=== PATIENT | female | born 1930 | race Caucasian/White ===

== ENCOUNTER → 2017-10-30 | Outpatient (CLI) | payer MEDICARE ==
[~2017-10-30] MED LIST: ACE3 PO; ALE70 PO; ASPI-1441 PO; ASPI-1471 PO; ATE50 PO; ATOR40TA24 PO; BACDS PO; CALC600T72 PO; CEP250 PO; CEPH-13 PO; CEPH500T7 PO; CHOL100059 PO; CIP500 PO; CIPR-344 PO; CITA-139 PO; CYCL10TA29 PO; FAMO10TA89 PO; HYDR-2966 PO; HYDR-3250 PO; KET10 PO; LIDO700A19 TP; LISI-362 PO; LISI20TA29 PO; LOR5/325 PO; LOV20 PO; MEC125 PO; MELO-205 PO; METO25TA23 PO; MIRT-22 PO; NIT4 SL; ONDA4TAB PO; OXYB5TAB86 PO; PAR20 PO; POTA10CA40 PO; PREVPACPT PO; SPIR25TA76 PO; SPIR25TA78 PO; TAMS0.4C25 PO; TOLT2CAP; TRAZ-156 PO; TRAZ-163 PO; TRIA5T TOP; vitamin D IM
[2017-10-30 15:07] LABS: PLATELET COUNT, AUTOMATED 349 K/uL (150-450)
== END ==
LOC: LAB 14:35
PROVIDERS: ATTEND Nurse Practitioner Family
DX: D50.9 Iron deficiency anemia, unspecified (principal); D50.8 Other iron deficiency anemias; M62.81 Muscle weakness (generalized); D51.0 Vitamin B12 deficiency anemia due to intrinsic factor deficiency; R27.8 Other lack of coordination; R29.6 Repeated falls; I69.128 Other speech and language deficits following nontraumatic intracerebral hemorrhage; E55.9 Vitamin D deficiency, unspecified
CPT/HCPCS: 36415; 82040; 82247; 82310; 82374; 82435; 82565; 82607; 82728; 82947; 84075; 84132; 84155; 84295; 84443; 84450; 84460; 84520; 85025

== ENCOUNTER 2017-12-02 10:32 | Outpatient (RCR) | payer MEDICARE ==
[~2017-12-02 10:32] MED LIST changes: +ALTEPLASE RECOMB 2 MG VIAL IVP PRN; +DEXTROSE 5%(*) 100 ML BAG 100 ML IVPB PRN; +HEPARIN FLSH (PORT) 500 UN/5ML IVP PRN; +LIDOCAINE/SOD BICARB 8.4% SYR ID PRN; +NS(*) 0.9% 100 ML BAG 100 ML IVPB PRN; +NS(*) 0.9% 500 ML BAG 500 ML IV PRN; +WATER STERILE 10 ML VIAL IVP PRN
[2017-12-02 11:02] VITALS: BP 161/87
[2017-12-02 11:05] VITALS: BP 161/87
[2017-12-02 11:20] VITALS: BP 148/79
[2017-12-02 13:26] VITALS: BP 149/74
[2017-12-09] MEDS ORDERED: OXYC-865 PO (12:00)
[2017-12-11] MEDS ORDERED: ACET-1966 PO (14:43)
[2017-12-11] MEDS ORDERED: SPIR25TA78 PO (14:43)
[2017-12-30] MEDS ORDERED: MOM PO (12:54)
[2017-12-30] MEDS ORDERED: ASPI-764 PO (12:54)
[2017-12-30] MEDS ORDERED: POLY17PO21 PO (12:54)
[2017-12-30] MEDS ORDERED: DOCU-202 PO (12:54)
== END 2018-01-22 14:53 | disposition home or self-care (01) ==
LOC: SPU 10:32
PROVIDERS: ATTEND Nurse Practitioner Family
DX: R09.02 Hypoxemia (principal); D50.9 Iron deficiency anemia, unspecified; R42 Dizziness and giddiness
CPT/HCPCS: 36415; 36430; 86850; 86900; 86901; 86920; J7040; P9016

== ENCOUNTER 2017-12-08 18:08 | Inpatient (IN) | payer MEDICARE ==
[~2017-12-08] VITALS: Ht 152.4 cm; Wt 42.9 kg
[~2017-12-08 18:08] MED LIST changes: -ACET-1966 PO; -OXYC-865 PO
[2017-12-08] MEDS ORDERED: NS(*) 0.9% 1000 ML BAG 1,000 ML IV ONE (18:13)
--- NOTE | 2017-12-08 18:13 | ER Report ---
History and Physical Time Seen By MD: 18:08 HPI/ROS CHIEF COMPLAINT: Fall, left hip pain, skin tear left elbow HISTORY OF PRESENT ILLNESS: 87-year-old female brought in by EMS from home. She fell off her porch, landing on her left hip and left elbow. She's complaining of severe left hip pain 9 out of 10. Her leg is internally rotated and shortened. EMS administered fentanyl 50 g prior to arrival. She feels much better. She was placed in a pelvic binder by EMS. Patient is a large avulsion skin tear over her left elbow. She thinks her last tetanus shot was within 10 years. She denies head impact, neck pain, chest pain, shortness of breath. REVIEW OF SYSTEMS: Respiratory: No cough, no dyspnea. Cardiovascular: No chest pain, no palpitations. Gastrointestinal: No vomiting, no abdominal pain. Musculoskeletal: As above Allergies: Coded Allergies: zolpidem (Verified Allergy, Unknown, 12/08/17) Home Meds Active Scripts Lisinopril (LISINOPRIL) 20 Mg Tablet, 20 MG PO QDAY, #30 TAB Prov:TONY BHANDARI DO 09/08/17 Oxybutynin Chloride (OXYBUTYNIN CHLORIDE) 5 Mg Tablet, 1 TAB PO QHS, #90 TAB 3 Refills Prov:AL PAYAN APRN-C 06/27/15 Citalopram Hydrobromide (CITALOPRAM HBR) 20 Mg Tablet, 1 TAB PO QDAY, #90 TAB 3 Refills Prov:AL PAYAN APRN-C 06/27/15 Reported Medications Oxycodone Hcl/Acetaminophen (PERCOCET 5-325 MG TABLET) 1 Each Tablet, 1-2 EACH PO Q4-6H Y for PAIN, TAB 12/09/17 Potassium Chloride (POTASSIUM CHLORIDE) 10 Meq Capsule.er, 10 MEQ PO 09/08/17 Atorvastatin Calcium (LIPITOR) 40 Mg Tablet, 1 TAB PO QDAY, TAB 09/08/17 Metoprolol Succinate (METOPROLOL SUCCINATE) 25 Mg Tab.er.24h, 1 TAB PO QDAY, TAB 09/08/17 Aspirin (ASPIR 81) 81 Mg Tablet.dr, 81 MG PO QDAY, TAB 09/08/17 Discontinued Scripts Lidocaine (Lidocaine) 5 % Adh..patch, 1 EACH TP QDAY, #30 PATCH Prov:TONY BHANDARI DO 09/08/17 Past Medical/Surgical History Past medical history: Hyperlipidemia, depression, overactive bladder, hypertension, CVA, , residual left upper extremity weakness Past surgical history appendectomy, partial colectomy, hysterectomy, Reviewed Nurses Notes: Yes Old Medical Records Reviewed: Yes Hx Smoking: No Smoking Status: Never Smoker Exposure to Second Hand Smoke?: No Hx Substance Use Disorder: No Hx Alcohol Use: No Constitutional Vital Sign - Last 24 Hours 12/08/17 12/08/17 12/08/17 12/08/17 18:08 18:23 18:31 18:32 Temp 98.7 Pulse ? 79 Resp 18 B/P (MAP) 121/91 185/97 (126) Pulse Ox 98 O2 Delivery Nasal Cannula 12/08/17 12/08/17 12/08/17 12/08/17 18:38 18:53 19:06 19:08 Pulse 73 87 88 B/P (MAP) 181/140 (154) Pulse Ox 98 95 98 12/08/17 12/08/17 12/08/17 19:23 19:30 19:38 Pulse 88 ??? B/P (MAP) 187/84 (118) Pulse Ox 98 Physical Exam General Appearance: The patient is alert, has no immediate need for airway protection and no current signs of toxicity. Vital signs stable, afebrile, pulse ox normal Eyes: Pupils equal and round no injection. Respiratory: Chest is non tender, lungs are clear to auscultation. Cardiac: regular rate and rhythm Gastrointestinal: Abdomen is soft and non tender, no masses, bowel sounds normal. Musculoskeletal: Neck: Neck is supple and non tender. Extremities have full range of motion and are non tender. There is tenderness over the left hip area, left lower externally is neurovascularly intact Skin: No rashes or lesions. DIFFERENTIAL DIAGNOSIS: After history and physical exam differential diagnosis was considered for fall in the elderly including but not limited to intracranial injury, long bone and pelvic bone fracture, spinal injury, and intrathoracic injury. Medical Decision Making Data Points Result Diagram: 12/09/17 1040 12/08/17 1902 Laboratory Hematology Test 12/08/17 19:02 Red Blood Count 4.10 M/uL (4.17-5.56) Mean Corpuscular Volume 87.3 fL (80.0-96.0) Mean Corpuscular Hemoglobin 29.3 pg (26.0-33.0) Mean Corpuscular Hemoglobin Concent 33.5 g/dL (32.0-36.0) Red Cell Distribution Width 13.6 % (11.5-14.5) Mean Platelet Volume 7.5 fL (7.2-11.1) Neutrophils (%) (Auto) 73.7 % (39.4-72.5) Lymphocytes (%) (Auto) 16.8 % (17.6-49.6) Monocytes (%) (Auto) 7.5 % (4.1-12.4) Eosinophils (%) (Auto) 1.3 % (0.4-6.7) Basophils (%) (Auto) 0.7 % (0.3-1.4) Nucleated RBC Relative Count (auto) 0.0 /100WBC Neutrophils # (Auto) 7.3 K/uL (2.0-7.4) Lymphocytes # (Auto) 1.7 K/uL (1.3-3.6) Monocytes # (Auto) 0.7 K/uL (0.3-1.0) Eosinophils # (Auto) 0.1 K/uL (0.0-0.5) Basophils # (Auto) 0.1 K/uL (0.0-0.1) Nucleated RBC Absolute Count (auto) 0.00 K/uL Prothrombin Time 14.0 seconds (12.0-14.4) Prothromb Time International Ratio 1.07 Activated Partial Thromboplast Time 25 seconds (23-35) Sodium Level 136 mmol/L (137-145) Potassium Level 3.9 mmol/L (3.5-5.0) Chloride Level 103 mmol/L (98-107) Carbon Dioxide Level 23 mmol/L (22-31) Blood Urea Nitrogen 19 mg/dl (7-18) Creatinine 0.70 mg/dl (0.52-1.04) Glomerular Filtration Rate Calc > 60.0 Random Glucose 102 mg/dl (75-110) Calcium Level 9.1 mg/dl (8.4-10.2) Total Bilirubin 0.3 mg/dl (0.2-1.3) Aspartate Amino Transf (AST/SGOT) 26 U/L (0-35) Alanine Aminotransferase (ALT/SGPT) 36 U/L (0-56) Alkaline Phosphatase 87 U/L (0-126) Troponin I < 0.012 ng/ml Total Protein 5.8 gm/dl (6.3-8.2) Albumin 3.1 g/dl (3.5-5.0) Chemistry Test 12/08/17 19:02 White Blood Count 9.9 k/uL (4.5-11.0) Red Blood Count 4.10 M/uL (4.17-5.56) Mean Corpuscular Volume 87.3 fL (80.0-96.0) Mean Corpuscular Hemoglobin 29.3 pg (26.0-33.0) Mean Corpuscular Hemoglobin Concent 33.5 g/dL (32.0-36.0) Red Cell Distribution Width 13.6 % (11.5-14.5) Platelet Count 281 K/uL (150-450) Mean Platelet Volume 7.5 fL (7.2-11.1) Neutrophils (%) (Auto) 73.7 % (39.4-72.5) Lymphocytes (%) (Auto) 16.8 % (17.6-49.6) Monocytes (%) (Auto) 7.5 % (4.1-12.4) Eosinophils (%) (Auto) 1.3 % (0.4-6.7) Basophils (%) (Auto) 0.7 % (0.3-1.4) Nucleated RBC Relative Count (auto) 0.0 /100WBC Neutrophils # (Auto) 7.3 K/uL (2.0-7.4) Lymphocytes # (Auto) 1.7 K/uL (1.3-3.6) Monocytes # (Auto) 0.7 K/uL (0.3-1.0) Eosinophils # (Auto) 0.1 K/uL (0.0-0.5) Basophils # (Auto) 0.1 K/uL (0.0-0.1) Nucleated RBC Absolute Count (auto) 0.00 K/uL Prothrombin Time 14.0 seconds (12.0-14.4) Prothromb Time International Ratio 1.07 Activated Partial Thromboplast Time 25 seconds (23-35) Glomerular Filtration Rate Calc > 60.0 Calcium Level 9.1 mg/dl (8.4-10.2) Total Bilirubin 0.3 mg/dl (0.2-1.3) Aspartate Amino Transf (AST/SGOT) 26 U/L (0-35) Alanine Aminotransferase (ALT/SGPT) 36 U/L (0-56) Alkaline Phosphatase 87 U/L (0-126) Troponin I < 0.012 ng/ml Total Protein 5.8 gm/dl (6.3-8.2) Albumin 3.1 g/dl (3.5-5.0) Coagulation Test 12/08/17 19:02 Prothrombin Time 14.0 seconds Prothromb Time International Ratio 1.07 Activated Partial Thromboplast Time 25 seconds EKG/Imaging EKG Interpretation 12 lead EK Rhythm: normal sinus rhythm with sinus arrhythmia, rate 63 bpm [place]: normal QRS: normal ST segments: normal, comparison to previous EKG 09/07/17. There is normalization of the T waves in the V leads., There is significant increase in voltage QRS, suspicious for LVH. Imaging X-ray: Single view portable chest x-ray was obtained. I viewed the images myself on the PACS system. My interpretation of the images is: No infiltrate, no effusion, normal mediastinum. The radiologist interpretation had no clinically significant variation from this interpretation. X-ray: Left hip 3 views was obtained. I viewed the images myself on the PACS system. My interpretation of the images is: There is a fracture of the left hip. There appears to be a surgical neck fracture as well as an intertrochanteric fracture. There appears to be a fragment. The radiologist interpretation had no clinically significant variation from this interpretation. Results: CT scan of the left hip was obtained. The results of the study are Examination: HIP LEFT W/O CONTRAST Comparison: Radiographs same day. History: Left hip fracture. Procedure: Multiplanar noncontrast CT left hip. One of the following dose optimization techniques was utilized in the performance of this exam: Automated exposure control; adjustment of the mA and/ or kV according to the patient's size; or use of an iterative reconstruction technique. Specific details can be referenced in the facility's radiology CT exam operational policy. Findings: Evaluation of the solid and viscus parenchymal organs and vascular structures is limited without the benefit of IV contrast. Left femur mildly comminuted, impacted, and angulated intertrochanteric/ subtrochanteric fracture. Both the greater trochanter and lesser trochanter are mildly fragmented. The femoral neck and femoral head are intact and left hip alignment is maintained. Mild soft tissue swelling surrounding the fracture but no definite evidence of hematoma. The visualized portions of the pelvis are intact. Visualized left sacroiliac joint and pubic symphysis alignment is within normal limits. Acetabular morphology is within normal limits with minimal left hip joint space loss. Sigmoidectomy. Minimal stool in the visualized colon. Questionable mild small bowel wall thickening and mesenteric edema in the visualized left lower abdomen and pelvis. The iliac and femoral atherosclerosis. IMPRESSION: 1. Left femur intertrochanteric/subtrochanteric comminuted and impacted fracture. 2. Questionable small bowel edema in the visualized left lower abdomen and pelvis. Correlation with any evidence of an enteritis is recommended. 3. Atherosclerosis. 4. Sigmoidectomy. The study was read by the radiologist. I viewed the images myself on the PACS system. ED Course/Re-evaluation Clinical Indication for ER IV: Hydration, IV Access ED Course Patient was admitted to an examination room. H&P was done. The differential diagnoses was considered. On clinical examination, patient appears to have a left hip fracture from her mechanism and her pain. Diagnostic x-rays are ordered. Patient's medicated for pain. Patient had diagnostic studies completed for preop. Case was discussed with Dr. Garcia and Dr. Malcolm Ya hospitalist to admit to the medical management. 12/08/2017 7:02:13 pm case was discussed with Dr. Garcia orthopedist on-call, who accept the patient for admission. Patient will go to the medical service and she has advanced age and numerous medical problems. 12/08/2017 7:26:26 pm returned call. After evaluating the films. He would like a CT scan of the left hip to be performed. Decision to Disposition Date: Dec 08, 2017 Decision to Disposition Time: 18:58 Depart Departure Latest Vital Signs Vital Signs Date Time Temp Pulse Resp B/P (MAP) Pulse Ox O2 Delivery O2 Flow Rate FiO2 12/08/17 19:38 ??? 12/08/17 19:30 187/84 (118) 12/08/17 19:23 98 12/08/17 18:31 98.7 18 Nasal Cannula Impression: Primary Impression: Fall in elderly patient Additional Impressions: Closed left hip fracture Skin tear of left elbow without complication History of hypertension History of CVA (cerebrovascular accident) Condition: Improved Disposition: Admitted from ER Referrals: CORTNEY VAZQUEZ (PCP) Problem Qualifiers Additional Impressions: Closed left hip fracture Encounter type: initial encounter Qualified Codes: S72.002A - Fracture of unspecified part of neck of left femur, initial encounter for closed fracture Skin tear of left elbow without complication Encounter type: initial encounter Qualified Codes: S51.012A - Laceration without foreign body of left elbow, initial encounter YSABEL FRANCIS DO Dec 08, 2017 18:13
[2017-12-08] MEDS ORDERED: ONDANSETRON 4 MG/2 ML VIAL IVP ONE (18:15)
[2017-12-08] MEDS ORDERED: fentaNYL CITR 100 MCG/2 ML AMP IVP ONE ×2 (18:20→19:30)
--- NOTE | 2017-12-08 18:22 | EKG ---
FACILITY: [facility] PATIENT NAME: KESHAV ALFONSO : [id number] MR: [id number] V: [id number] EXAM DATE: ORDERING PHYSICIAN: YSABEL FRANCIS TECHNOLOGIST: CHERYLE Schultz Reason : FALL Blood Pressure : / mmHG Vent. Rate : 063 BPM Atrial Rate : 063 BPM P-R Int : 164 ms QRS Dur : 072 ms QT Int : 410 ms P-R-T Axes : 061 020 042 degrees QTc Int : 419 ms Normal sinus rhythm with sinus arrhythmia Moderate voltage criteria for LVH, may be normal variant No ST-T abnormalities When compared with ECG of 07-SEP-2017 11:42, Vent. rate has decreased BY 49 BPM T wave inversion no longer evident in Anterior leads Confirmed by NELSON PRETTY ([id number]) on 12/08/2017 8:00:43 PM Referred By: TITO Confirmed By:NELSON PRETTY
[2017-12-08 19:11] LABS: PLATELET COUNT, AUTOMATED 281 K/uL (150-450)
--- NOTE | 2017-12-08 19:37 | RADIOLOGY IMAGING REPORT ---
FACILITY: [facility] - [place] PATIENT NAME: Sayra Hayward : 1930 MR: [id number] V: [id number] EXAM DATE: ORDERING PHYSICIAN: YSABEL FRANCIS TECHNOLOGIST: Location: [facility] - [place] Patient: Sayra Hayward : 1930 Visit/Account:[id number] Date of Sevice: 12/08/2017 Chest single view: HISTORY: Fall, left hip pain. COMPARISON: 09/07/2017 FINDINGS: Portable chest 1850 hours: Heart size is upper limits of normal. There is no infiltrate or pleural effusion. No pneumothorax. Pulmonary vasculature is normal. Atherosclerotic changes are prese nt in the aorta. Large hiatal hernia is noted. IMPRESSION: No evidence of acute cardiopulmonary abnormality. Report Dictated By: Deedee Brennan MD at 12/08/2017 7:31 PM Report E-Signed By: Deedee Brennan MD at 12/08/2017 7:33 PM WSN:[id number]
[2017-12-08 19:38] LABS: INR 1.07
--- NOTE | 2017-12-08 19:55 | RADIOLOGY IMAGING REPORT ---
[place] [facility] [place] Sayra Hayward : 1930 MR: [id number] V: [id number] EXAM DATE: ORDERING PHYSICIAN: YSABEL FRANCIS TECHNOLOGIST: Location: [facility] - [place] Patient: Sayra Hayward : 1930 Visit/Account:[id number] Date of Sevice: 12/08/2017 HIP LEFT HISTORY: Fall, left hip pain ADDITIONAL HISTORY: None. COMPARISON: None. FINDINGS: AP view the pelvis and coned-down AP and crosstable lateral views of the left hip were obtained. Ther e is a fracture through the proximal femur which appears to extend from the proximal femur below the lesser trochanter cranially and laterally possibly to the base of the femoral neck. From the images p rovided, it is difficult to determine the exact trajectory is a fracture. If indicated, CT could BE c onsidered. There is slight varus angulation at the fracture. Hip joint spaces are well-maintained. Right hip is unremarkable. Pelvic ring is intact. Symphysis and SI joints are within normal limits. IMPRESSION: Proximal femur fracture which may extend cranially to involve the base of the femoral neck. If there is need for further evaluation of the fracture, cross-sectional imaging may be considered. Report Dictated By: Deedee Brennan MD at 12/08/2017 7:33 PM Report E-Signed By: Deedee Brennan MD at 12/08/2017 7:51 PM WSN:[id number]
--- NOTE | 2017-12-08 20:27 | RADIOLOGY IMAGING REPORT ---
FACILITY: [facility] PATIENT NAME: Sayra Hayward : 1930 MR: [id number] V: [id number] EXAM DATE: ORDERING PHYSICIAN: YSABEL FRANCIS TECHNOLOGIST: Location: [facility] - [place] Patient: Sayra Hayward : 1930 Visit/Account:[id number] Date of Sevice: 12/08/2017 Examination: HIP LEFT W/O CONTRAST Comparison: Radiographs same day. History: Left hip fracture. Procedure: Multiplanar noncontrast CT left hip. One of the following dose optimization techniques was utilized in the performance of this exam: Autom ated exposure control; adjustment of the mA and/or kV according to the patient's size; or use of an i terative reconstruction technique. Specific details can be referenced in the facility's radiology C T exam operational policy. Findings: Evaluation of the solid and viscus parenchymal organs and vascular structures is limited wi thout the benefit of IV contrast. Left femur mildly comminuted, impacted, and angulated intertrochanteric/subtrochanteric fracture. Bot h the greater trochanter and lesser trochanter are mildly fragmented. The femoral neck and femoral he ad are intact and left hip alignment is maintained. Mild soft tissue swelling surrounding the fracture but no definite evidence of hematoma. The visualized portions of the pelvis are intact. Visualized left sacroiliac joint and pubic symphysi s alignment is within normal limits. Acetabular morphology is within normal limits with minimal left hip joint space loss. Sigmoidectomy. Minimal stool in the visualized colon. Questionable mild small bowel wall thickening a nd mesenteric edema in the visualized left lower abdomen and pelvis. The iliac and femoral atheroscle rosis. IMPRESSION: 1. Left femur intertrochanteric/subtrochanteric comminuted and impacted fracture. 2. Questionable small bowel edema in the visualized left lower abdomen and pelvis. Correlation with a ny evidence of an enteritis is recommended. 3. Atherosclerosis. 4. Sigmoidectomy. Results were discussed with YSABEL FRANCIS at 12/08/2017 8:20 PM. Report Dictated By: Sundar Ocampo MD at 12/08/2017 8:12 PM Report E-Signed By: Sundar Ocampo MD at 12/08/2017 8:22 PM WSN:[id number]
[2017-12-08] MEDS ORDERED: fentaNYL CITR 100 MCG/2 ML AMP IVP PRN ×2 (20:55→23:10)
[2017-12-08 21:18] VITALS: BP 190/113
[2017-12-08 21:22] VITALS: BP 168/105
[2017-12-08] MEDS ORDERED: NS(*) 0.9% 1000 ML BAG 1,000 ML IV PRN (23:09)
[2017-12-08] MEDS ORDERED: PROMETHAZINE 25 MG/ML 1 ML AMP IVP PRN (23:10)
[2017-12-08] MEDS ORDERED: INFLUENZA VIRUS VAC 0.5 ML SYR IM ONLY ONE (23:10)
[2017-12-08] MEDS ORDERED: LABETALOL HCL 20 MG/4 ML SYR IVP PRN (23:10)
--- NOTE | 2017-12-08 23:33 | History & Physical ---
History of Present Illness History of Present Illness 87yo female with h/o CVA who came to the ER after a fall. She was in her normal state of health this evening. She was climbing stairs to go to a democrat and stepped wrong. She fell on her left side. She denies any cp/sob/vertigo/ palpitations/LOC before the fall. She had a stroke about a year ago and has some residual left UE and LE weakness. She denies CAD/COPD/asthma/CHF/DVT/PE. She has never had problems with anesthesia. She is able to climb a flight of stairs without stopping and exercises multiple times a week. She denies LE edema, orthopnea, cp with activity, or sob. History Problems: (1) History of CVA (cerebrovascular accident) Status: Chronic (2) History of hypertension Status: Chronic (3) OAB (overactive bladder) Status: Chronic (4) Hypertension Status: Chronic (5) Depression Status: Chronic (6) History of hysterectomy Status: Chronic (7) History of partial colectomy Status: Chronic (8) History of appendectomy Status: Chronic Home Meds Active Scripts Lisinopril (LISINOPRIL) 20 Mg Tablet, 20 MG PO QDAY, #30 TAB Prov:TONY BHANDARI DO 09/08/17 Lidocaine (Lidocaine) 5 % Adh..patch, 1 EACH TP QDAY, #30 PATCH Prov:TONY BHANDARI DO 09/08/17 Oxybutynin Chloride (OXYBUTYNIN CHLORIDE) 5 Mg Tablet, 1 TAB PO QHS, #90 TAB 3 Refills Prov:AL PAYAN APRN-C 06/27/15 Citalopram Hydrobromide (CITALOPRAM HBR) 20 Mg Tablet, 1 TAB PO QDAY, #90 TAB 3 Refills Prov:AL PAYAN APRNP-C 06/27/15 Reported Medications Potassium Chloride (POTASSIUM CHLORIDE) 10 Meq Capsule.er, 10 MEQ PO 09/08/17 Atorvastatin Calcium (LIPITOR) 40 Mg Tablet, 1 TAB PO QDAY, TAB 09/08/17 Metoprolol Succinate (METOPROLOL SUCCINATE) 25 Mg Tab.er.24h, 1 TAB PO QDAY, TAB 09/08/17 Aspirin (ASPIR 81) 81 Mg Tablet.dr, 81 MG PO QDAY, TAB 09/08/17 Allergies: Coded Allergies: zolpidem (Verified Allergy, Unknown, 12/08/17) Patient History: Diabetes mellitus (DM) FH: breast cancer CHILD (Breast Cancer) CHILD (Breast Cancer) FHx: heart disease FHx: hypertension Hx Smoking: No Smoking Status: Never Smoker Exposure to Second Hand Smoke?: No Caffeine Intake: Tea Hx Alcohol Use: No Hx Substance Use Disorder: No Review of Systems All Systems Reviewed/Normal: Yes, Except as Noted Exam Vital Signs Vital Signs Date Time Temp Pulse Resp B/P (MAP) Pulse Ox O2 Delivery O2 Flow Rate FiO2 12/08/17 20:21 2.0 12/08/17 19:53 89 97 12/08/17 19:30 187/84 (118) 12/08/17 18:31 98.7 18 Nasal Cannula General Appearance: Alert, Awake, No Acute Distress Neuro: No Gross deficits Eyes: PERRLA ENT: Moist Mucous Membranes Cardiovascular: Regular Rate and Rhythm, No JVD Respiratory: Clear to Auscultation GI: Abd Soft and Non-Tender Extremities: No Edema Integumentary: No Jaundice, No Cyanosis Medical Decision Making Data Points Result Diagram: 12/08/17190112/08/171901 EKG / Imaging EKG Interpretation Vent. Rate : 063 BPM Atrial Rate : 063 BPM P-R Int : 164 ms QRS Dur : 072 ms QT Int : 410 ms P-R-T Axes : 061 020 042 degrees QTc Int : 419 ms Normal sinus rhythm with sinus arrhythmia Moderate voltage criteria for LVH, may be normal variant No ST-T abnormalities When compared with ECG of 07-SEP-2017 11:42, Vent. rate has decreased BY 49 BPM T wave inversion no longer evident in Anterior leads Confirmed by NELSON PRETTY ([id number]) on 12/08/2017 8:00:[address] - 1. Left femur intertrochanteric/subtrochanteric comminuted and impacted fracture. 2. Questionable small bowel edema in the visualized left lower abdomen and pelvis. Correlation with any evidence of an enteritis is recommended. 3. Atherosclerosis. 4. Sigmoidectomy. CXR - No evidence of acute cardiopulmonary abnormality. Hip Xray - Proximal femur fracture which may extend cranially to involve the base of the femoral neck. If there is need for further evaluation of the fracture, cross-sectional imaging may be considered. Assessment and Plan Problems: (1) Pre-op evaluation Status: Acute Assessment & Plan: The patient has a low to moderate risk for cardiac complications related to surgery because of age, HTN, and a CVA 12 months ago. However, she has no worrisome symptoms and had a normal myocardial perfusion scan 1.5 months ago. There is no further testing to be done. She has a low risk for pulmonary complications. She had a moderate to high risk for delirium after surgery because of her age and previous CVA. She has a low to moderate risk for bleeding secondary to ASA use. (2) Closed left hip fracture Status: Acute Assessment & Plan: It was secondary to a fall without any worrisome symptoms causing the event. Dr. Curry is following. (3) Anemia Status: Chronic Assessment & Plan: She has had a normocytic anemia for a couple of years. She was transfused 1 unit of PRBC on 12/02 for what appears to be a Hgb of 9.8. Hgb is 12 today. She is chronically on ASA, but no reported symptoms concerning for occult bleeding. Will follow. (4) Skin tear of left elbow without complication Status: Acute Assessment & Plan: Left elbow has a significant hematoma and is wrapped. Apparently, she has a skin tear under the dressing. Will follow. (5) History of CVA (cerebrovascular accident) Status: Chronic Assessment & Plan: Chronically on ASA, and Lipitor, which will be held before surgery. (6) Hypertension Status: Chronic Assessment & Plan: She is chronically on Toprol. She reports SBP in the 150- 180 at home. Will give labetalol prn before surgery. (7) Depression Status: Chronic Assessment & Plan: Chronically on citalopram which will be held for now. (8) OAB (overactive bladder) Status: Chronic Assessment & Plan: She is chronically on oxybutynin, which will be held for now. Copies to: KARENA CURRY MD; CORTNEY VAZQUEZ Venous Thromboembolism Antithrombotics Is Pt On Any Antithrombotics?: No Exam Sepsis Risk: No Definite Risk Problem Qualifiers (1) Closed left hip fracture: Encounter type: initial encounter Qualified Codes: S72.002A - Fracture of unspecified part of neck of left femur, initial encounter for closed fracture (2) Skin tear of left elbow without complication: Encounter type: initial encounter Qualified Codes: S51.012A - Laceration without foreign body of left elbow, initial encounter NELSON PRETTY MD Dec 08, 2017 23:33
[2017-12-08 23:41] VITALS: BP 176/109
[2017-12-09] VITALS (19 sets, daily range): BP systolic 101–147; BP diastolic 61–101; Ht 152.4 cm; Wt 42.9 kg
[2017-12-09] MEDS ORDERED: NORMOSOL R SOLN(*) 1000 ML BAG 1,000 ML IV ONE (07:46)
[2017-12-09] MEDS ORDERED: FAMOTIDINE(*) 20MG/50ML PREMIX 50 ML IVPB ONE (07:55)
[2017-12-09] MEDS ORDERED: LABETALOL HCL 100 MG/20ML VIAL IVP PRN (08:00)
[2017-12-09] MEDS ORDERED: ceFAZolin(*) 1 GM VIAL 1 GM in NS(*) 0.9% 100 ML ADDVANT BAG 100 ML IV ONE ×2 (08:10→08:20)
[2017-12-09] MEDS ORDERED: LIDOCAINE MPF 1% 5 ML VIAL ONE (08:13)
[2017-12-09] MEDS ORDERED: ONDANSETRON 4 MG/2 ML VIAL ONE (08:13)
[2017-12-09] MEDS ORDERED: PROPOFOL EMUL(*) 10MG/ML 20 ML 20 ML ONE (08:13)
[2017-12-09] MEDS ORDERED: fentaNYL CITR 100 MCG/2 ML AMP ONE (08:13)
[2017-12-09] MEDS ORDERED: DEXAMETHASONE SOD 4 MG/ML VIAL ONE (08:13)
[2017-12-09] MEDS ORDERED: ROCURONIUM BROM 10 MG/ML 10 ML ONE (08:15)
[2017-12-09] MEDS ORDERED: KETAMINE HCL 200 MG/20 ML MDV ONE (08:19)
[2017-12-09] MEDS ORDERED: ROPIVACAINE 0.2% 20 ML VIAL ONE (08:30)
[2017-12-09] MEDS ORDERED: PHENYLEPHRINE/NS/PF 0.4MG/10ML ONE (09:41)
[2017-12-09] MEDS ORDERED: DESFLURANE 240 ML BTL INH ONE (09:41)
[2017-12-09] MEDS ORDERED: SUGAMMADEX SOD 200 MG/2 ML SDV ONE (09:42)
[2017-12-09] MEDS ORDERED: NS 0.9% IRRIGATION 1000ML PLCT IR ONE (09:57)
[2017-12-09] MEDS ORDERED: ONDANSETRON 4 MG/2 ML VIAL IVP PRN (10:25)
[2017-12-09] MEDS ORDERED: NALOXONE HCL 0.4 MG/ML VIAL IVP PRN (10:25)
[2017-12-09] MEDS ORDERED: PROMETHAZINE 25 MG/ML 1 ML AMP IVP PRN (10:25)
[2017-12-09] MEDS ORDERED: KCL/D5LR 20 MEQ/1000 ML PREMIX 1,000 ML IV PRN (10:25)
[2017-12-09] MEDS ORDERED: FLUSH 10 ML SYR IVP PRN (10:25)
[2017-12-09] MEDS ORDERED: diphenhydrAMINE 25 MG CAP PO PRN (10:25)
[2017-12-09] MEDS ORDERED: ACETAMINOPHEN 500 MG TAB PO PRN (10:25)
[2017-12-09] MEDS ORDERED: MAGNESIUM CITRATE 300 ML BTL PO PRN (10:25)
[2017-12-09] MEDS ORDERED: HYDROmorphone PCA 6 MG/30 ML IV PRN (10:25)
--- NOTE | 2017-12-09 10:49 | RADIOLOGY IMAGING REPORT ---
FACILITY: [facility] - [place] PATIENT NAME: Sayra Hayward : 1930 MR: [id number] V: [id number] EXAM DATE: ORDERING PHYSICIAN: KARENA CURRY TECHNOLOGIST: Location: [facility] - [place] Patient: Sayra Hayward : 1930 Visit/Account:[id number] Date of Sevice: 12/09/2017 C-ARM FLUORO 1 HR Provided history: FX HIP L Additional pertinent history: none COMPARISON STUDIES: 12/08/17 FINDINGS: Fluoroscopic views of the left hip demonstrate open reduction and internal fixation of a left hip I T fracture with a short IM fransico and compression screw. Alignment is very close to anatomic with minim al lateral displacement of the distal component.. IMPRESSION: Fluoroscopy and spot views during left hip surgical reduction. 65 seconds of fluoroscopic time was used for the procedure. 8 images were obtained. Report Dictated By: Fidel Martin MD at 12/09/2017 10:43 AM Report E-Signed By: Fidel Martin MD at 12/09/2017 10:45 AM WSN:[id number]
[2017-12-09] MEDS ORDERED: OXYC-865 PO (12:00)
--- NOTE | 2017-12-09 13:25 | Hospitalist Progress Note ---
Subjective Progress Notes Subjective Patient seen post-op. She reports "I'm doing fine". She denies any SOB/CP/N/V. Physical Exam Vital Signs Date Time Temp Pulse Resp B/P (MAP) Pulse Ox O2 Delivery O2 Flow Rate FiO2 12/09/17 12:30 96 115/71 (86) 96 Nasal Cannula 2.0 12/09/17 11:18 97.6 12 Intake and Output 12/10/17 07:00 Intake Total 1750 ml Output Total 525 ml Balance 1225 ml Intake Oral 50 ml IV Total 1700 ml Output Urine Total 175 ml Estimated Blood Loss 350 ml General Appearance: Alert, Awake Cardiovascular: Regular Rate and Rhythm Respiratory: Clear to Auscultation Extremities: Warm, Perfused Result Diagram: 12/09/17 1040 12/08/17 1902 Assessment and Plan Problems: (1) Closed left hip fracture Status: Acute Assessment & Plan: Secondary to a fall without any worrisome symptoms causing the event. Dr. Garcia has performed ORIF. She will be working with PT/OT. She will resume her aspirin therapy. (2) Anemia Status: Chronic Assessment & Plan: She has had a normocytic anemia for a couple of years. She was transfused 1 unit of PRBC on 12/02/2017 for what appears to be a Hgb of 9.8. Hgb was 12.0 pre-op. She is chronically on ASA, but no reported symptoms concerning for occult bleeding. Will follow. (3) Skin tear of left elbow without complication Status: Acute Assessment & Plan: Left elbow has a significant hematoma and is wrapped. She has a skin tear under the dressing as well. Will follow. (4) History of CVA (cerebrovascular accident) Status: Chronic Assessment & Plan: Chronically on ASA, and Lipitor, which will be resumed. (5) Hypertension Status: Chronic Assessment & Plan: She is chronically on Toprol. (6) Depression Status: Chronic Assessment & Plan: Chronically on citalopram which will be restarted. (7) OAB (overactive bladder) Status: Chronic Assessment & Plan: She is chronically on oxybutynin, which will be held while Dumont cath in place. Exam Sepsis Risk: No Definite Risk Problem Qualifiers (1) Closed left hip fracture: Encounter type: initial encounter Qualified Codes: S72.002A - Fracture of unspecified part of neck of left femur, initial encounter for closed fracture (2) Skin tear of left elbow without complication: Encounter type: initial encounter Qualified Codes: S51.012A - Laceration without foreign body of left elbow, initial encounter DELLA PETTY MD Dec 09, 2017 13:25
--- NOTE | 2017-12-09 13:39 | RADIOLOGY IMAGING REPORT ---
FACILITY: [facility] PATIENT NAME: Sayra Hayward : 1930 MR: [id number] V: [id number] EXAM DATE: ORDERING PHYSICIAN: KARENA CURRY TECHNOLOGIST: Location: [facility] - [place] Patient: Sayra Hayward : 1930 Visit/Account:[id number] Date of Sevice: 12/09/2017 ELBOW 3 VIEW LEFT History: Left elbow pain. Comparison study: None. Findings: There is no fracture or dislocation involving the left elbow. There are no findings of a joint effusion. There are only minimal findings of joint space narrowing for patient of this stated age. IMPRESSION: No fracture or joint effusion involving the left elbow. Report Dictated By: Mendoza Gil MD at 12/09/2017 1:35 PM Report E-Signed By: Mendoza Gil MD at 12/09/2017 1:35 PM WSN:[id number]
[2017-12-09] MEDS ORDERED: ceFAZolin(*) 1 GM VIAL 1 GM in NS(*) 0.9% 100 ML ADDVANT BAG 100 ML IVPB SCH (17:00)
--- NOTE | 2017-12-09 17:16 | CONSULTATION ---
EVENT DATE: December 09, 2017 ATTENDING PHYSICIAN CONSULTING PHYSICIAN Zac Garcia MD REASON FOR CONSULTATION Ms. Hayward was admitted through the emergency room last night after tripping on a single step and falling over, landing on her left side, striking the left elbow and the left hip. She was not able to bear weight. X-rays confirmed a fracture that extended just inferior to the intertrochanteric line, exiting inferior to the lesser trochanter with some comminution. No x-rays were obtained of the left elbow. There was a skin tear on the elbow which was dressed. PHYSICAL EXAMINATION On exam today she was able to demonstrate adequate cervical range of motion without pain. There is no chest pain. The upper extremities are pain free with the exception of the elbow where she does have good motion, albeit with pain. Any amount at range of motion of the left hip causes groin and proximal thigh pain. The knee and ankle on that side are pain free. She is neurovascularly intact in the lower extremities. The right hip and leg are pain free. ASSESSMENT AND PLAN She lives alone. Her six children are probably going to be coming in, but they do not have the capacity to stay with her, and most likely she will come to require extended care treatment after her surgery. She is requesting Dr. Chavez because she knows him and has had procedures with him before, but I do not know if he is available. We will plan on doing a Gamma nail this afternoon if cleared. The most likely treatment will be a long Gamma nail, but we will take a look at the CT scan to make a final determination, and also decide based on how it looks once reduced on fluoroscopy in the operating room. J CARLOS
[2017-12-09] MEDS: ceFAZolin 1 GM VIAL IVP SCH (17:22)
--- NOTE | 2017-12-09 20:26 | OPERATIVE REPORT 1 ---
EVENT DATE: December 09, 2017 SURGEON: Zac Garcia MD ANESTHESIOLOGIST: Be Freire MD ANESTHESIA: General plus fascial block. LACQUER COATER: DIPTI Burnham PREOPERATIVE DIAGNOSIS Left hip intertrochanteric femur fracture. POSTOPERATIVE DIAGNOSIS Left hip intertrochanteric femur fracture. PROCEDURE PERFORMED Gamma nail placement, left hip intertrochanteric femur fracture. ESTIMATED BLOOD LOSS 350 INTRAVENOUS FLUIDS 1600 TOURNIQUET TIME None. SPECIMENS None. COMPLICATIONS None. IMPLANTS USED Gamma3 trochanteric nail with a 125-degree angle, a proximal locking screw, a 90 mm lag screw placed in compression, and a 30 mm distal locking screw. SUMMARY OF PROCEDURE The patient was brought into the operating room and placed on the OR table in the supine position. After she had gotten the fascial block under ultrasound guidance with Dr. Freire, he gave her a general anesthetic, and we had her on the fracture table. We used the C-arm to effect a reduction, checking both AP and lateral views. She appeared to have excellent bone stock. We then made our triangulation busby to identify the point of entry and then prepped and draped in the usual sterile fashion using a shower curtain technique. An incision was made in the skin and fascia. We used a guidewire to identify the canal and placed this at the tip of the trochanter entering into the canal, checking its position on AP and lateral views, after which the single-step reamer was used to gain access. We then placed the Gamma nail after having tested it to see that all alignment systems worked properly. Surprisingly, it was a bit difficult to advance at the very end, and we took a look distally, it was because her bone stock was so significant that the cortical mendes were actually impinging a bit on the margins of the fransico. This was fairly unusual for the short fransico in an elderly patient, but she does appear to have excellent bone stock. Subsequent to this, we were able to get it down to the appropriate alignment for the head and neck assembly and then drilled this with the guidewire, after which we measured it. We selected a 90 and drilled this with the over-reamer. The lag screw was placed. The locking screw was placed proximally and then backed off a quarter turn. We tested it to ensure that the lag screw was not captured, but would still not allow rotation, which is the appropriate position, and then removed the assembly. Distally, we drilled and then placed a 30 mm screw. We checked AP and lateral views both the proximal and distal portions and then imaged the hip under fluoroscopy while rotating to ensure that none of the threads perforated the hip. She was given a dry, sterile dressing after having first irrigated the wound, closed the fascia with 0 Vicryl, and then used veronica for the skin. She was awakened and transferred to the recovery room in stable condition. J CARLOS
[2017-12-10] VITALS (11 sets, daily range): BP systolic 114–180; BP diastolic 56–94
[2017-12-10] MEDS: ceFAZolin 1 GM VIAL IVP SCH ×2 (01:38→09:20)
[2017-12-10 07:53] LABS: PLATELET COUNT, AUTOMATED 200 K/uL (150-450)
[2017-12-10] MEDS ORDERED: BISACODYL 10 MG SUPP PR PRN (08:45)
[2017-12-10] MEDS ORDERED: MAGNESIUM HYDROXIDE* 30ML UDCP PO PRN (08:45)
[2017-12-10] MEDS: POLYETHYLENE GLYCOL 17 GM PKT PO SCH (09:00)
[2017-12-10] MEDS: DOCUSATE SODIUM 100 MG CAP PO SCH ×2 (09:19→20:48)
[2017-12-10] MEDS: METOPROLOL SUCC XL 25 MG TABCR PO SCH (09:20)
[2017-12-10] MEDS: ASPIRIN 325 MG ENTERIC COATED PO SCH (09:20)
[2017-12-10] MEDS: CITALOPRAM HYDROBROM 20 MG TAB PO SCH (09:20)
[2017-12-10] MEDS: ATORVASTATIN 40 MG TAB PO SCH (09:21)
[2017-12-10] MEDS ORDERED: NS(*) 0.9% 500 ML BAG 500 ML ONE (09:56)
--- NOTE | 2017-12-10 16:44 | Hospitalist Progress Note ---
Subjective Progress Notes Subjective No cp/sob. She is having some left neck pain that is worsened with moving her head or putting pressure on the left neck. It started yesterday and is relatively unchanged. Physical Exam Vital Signs Date Time Temp Pulse Resp B/P (MAP) Pulse Ox O2 Delivery O2 Flow Rate FiO2 12/10/17 15:12 99.4 106 16 134/78 12/10/17 15:01 98 Nasal Cannula 2.0 Intake and Output 12/11/17 07:00 Intake Total 490 ml Balance 490 ml Intake Oral 240 ml Blood Product 250 ml # Emeses 1 General Appearance: Alert, Awake, No Acute Distress Result Diagram: 12/10/17 0741 12/08/17 1902 Assessment and Plan Problems: (1) Closed left hip fracture Status: Acute Assessment & Plan: Secondary to a fall without any worrisome symptoms causing the event. Dr. Garcia has performed ORIF. She will be working with PT/OT. She will resume her aspirin therapy. (2) Anemia Status: Chronic Assessment & Plan: She has had a normocytic anemia for a couple of years. She was transfused 1 unit of PRBC on 12/02/2017 for what appears to be a Hgb of 9.8. Hgb was 12.0 pre-op. She is chronically on ASA, but no reported symptoms concerning for occult bleeding. Hgb was 9.7 post-op, and she did have about 350cc of EBL. This morning the Hgb is 6.8. BP and P are stable. She will get 2 units of PRBC. Will check iron studies, and B12/Folate. (3) Skin tear of left elbow without complication Status: Acute Assessment & Plan: Left elbow has a significant hematoma and is wrapped, but is improving. She has a skin tear under the dressing as well. Will follow. (4) History of CVA (cerebrovascular accident) Status: Chronic Assessment & Plan: Chronically on ASA, and Lipitor, which will be resumed. (5) Hypertension Status: Chronic Assessment & Plan: She is chronically on Toprol. (6) Depression Status: Chronic Assessment & Plan: Chronically on citalopram which will be restarted. (7) OAB (overactive bladder) Status: Chronic Assessment & Plan: She is chronically on oxybutynin, which will be held while Dumont cath in place. Exam Sepsis Risk: No Definite Risk Problem Qualifiers (1) Closed left hip fracture: Encounter type: initial encounter Qualified Codes: S72.002A - Fracture of unspecified part of neck of left femur, initial encounter for closed fracture (2) Skin tear of left elbow without complication: Encounter type: initial encounter Qualified Codes: S51.012A - Laceration without foreign body of left elbow, initial encounter NELSON PRETTY MD Dec 10, 2017 16:44
[2017-12-10 19:13] LABS: PLATELET COUNT, AUTOMATED 164 K/uL (150-450)
[2017-12-11 03:54] VITALS: BP 173/94
[2017-12-11 06:21] LABS: PLATELET COUNT, AUTOMATED 163 K/uL (150-450)
[2017-12-11 08:13] VITALS: BP 199/91
[2017-12-11] MEDS: METOPROLOL SUCC XL 25 MG TABCR PO SCH (08:59)
[2017-12-11] MEDS: POLYETHYLENE GLYCOL 17 GM PKT PO SCH (08:59)
[2017-12-11] MEDS: CITALOPRAM HYDROBROM 20 MG TAB PO SCH (08:59)
[2017-12-11] MEDS: ASPIRIN 325 MG ENTERIC COATED PO SCH (08:59)
[2017-12-11] MEDS: DOCUSATE SODIUM 100 MG CAP PO SCH (08:59)
[2017-12-11] MEDS: ATORVASTATIN 40 MG TAB PO SCH (08:59)
--- NOTE | 2017-12-11 11:20 | Hospitalist Depart ---
Discharge Summary Reason for Hosp/Final Diag: (1) Closed left hip fracture Status: Acute Hospital Course & Plan: Surgically repaired by Dr Garcia. She is on ASA for VTE prophylaxis. (2) Anemia Status: Acute Hospital Course & Plan: She required transfusion with two units yesterday. Hemoglobin is stable. (3) Skin tear of left elbow without complication Status: Acute Hospital Course & Plan: Left elbow has a significant hematoma and is wrapped, but is improving. She has a skin tear under the dressing as well. (4) History of CVA (cerebrovascular accident) Status: Chronic Hospital Course & Plan: She is on chronic treatment with ASA and Lipitor. (5) Hypertension Status: Chronic Hospital Course & Plan: She is on chronic treatment with Toprol. (6) Depression Status: Chronic Hospital Course & Plan: She is on chronic treatment with citalopram. (7) OAB (overactive bladder) Status: Chronic Hospital Course & Plan: She is on chronic treatment with oxybutynin. Departure Weight (Pounds): 94 Weight (Ounces): 8.0 Result Diagram: 12/11/1761312/11/17613 Condition: Improved Discharge: [facility] PT/OT Follow Up For: PT Evaluation and Treat, OT Evaluation and Treat Discharge Instructions Home Meds Active Scripts Lisinopril (LISINOPRIL) 20 Mg Tablet, 20 MG PO QDAY, #30 TAB Prov:TONY BHANDARI DO 09/08/17 Oxybutynin Chloride (OXYBUTYNIN CHLORIDE) 5 Mg Tablet, 1 TAB PO QHS, #90 TAB 3 Refills Prov:AL PAYAN APRN-C 06/27/15 Citalopram Hydrobromide (CITALOPRAM HBR) 20 Mg Tablet, 1 TAB PO QDAY, #90 TAB 3 Refills Prov:AL PAYAN APRN-C 06/27/15 Reported Medications Oxycodone Hcl/Acetaminophen (PERCOCET 5-325 MG TABLET) 1 Each Tablet, 1-2 EACH PO Q4-6H Y for PAIN, TAB 12/09/17 Potassium Chloride (POTASSIUM CHLORIDE) 10 Meq Capsule.er, 10 MEQ PO 09/08/17 Atorvastatin Calcium (LIPITOR) 40 Mg Tablet, 1 TAB PO QDAY, TAB 09/08/17 Metoprolol Succinate (METOPROLOL SUCCINATE) 25 Mg Tab.er.24h, 1 TAB PO QDAY, TAB 09/08/17 Aspirin (ASPIR 81) 81 Mg Tablet.dr, 81 MG PO QDAY, TAB 09/08/17 Discontinued Scripts Lidocaine (Lidocaine) 5 % Adh..patch, 1 EACH TP QDAY, #30 PATCH Prov:TONY BHANDARI DO 09/08/17 Diet: Regular Activity: As Tolerated, With Walker Special Instructions: Copies to: CORTNEY VAZQUEZ Venous Thromboembolism Antithrombotics Is Pt On Any Antithrombotics?: No Problem Qualifiers (1) Closed left hip fracture: Encounter type: initial encounter Qualified Codes: S72.002A - Fracture of unspecified part of neck of left femur, initial encounter for closed fracture (2) Anemia: Other causes of anemia: acute posthemorrhagic (3) Skin tear of left elbow without complication: Encounter type: initial encounter Qualified Codes: S51.012A - Laceration without foreign body of left elbow, initial encounter (4) Hypertension: Hypertension type: essential hypertension Qualified Codes: I10 - Essential ( primary) hypertension TONY BHANDARI DO Dec 11, 2017 11:20
[2017-12-11] MEDS ORDERED: ACET-1966 PO (14:43)
[2017-12-11] MEDS ORDERED: SPIR25TA78 PO (14:43)
== END 2017-12-11 10:25 | DRG 481 ==
LOC: ER 18:27 → MED 19:43
PROVIDERS: ADMIT Orthopaedic Surgery Hand Surgery; ATTEND Orthopaedic Surgery Hand Surgery
PROC: 0QS706Z Reposition Left Upper Femur with Intramedullary Internal Fixation Device, Open Approach (ICD-10-PCS; principal; 2017-12-09 08:26)
PROC: 30233N1 Transfusion of Nonautologous Red Blood Cells into Peripheral Vein, Percutaneous Approach (ICD-10-PCS; 2017-12-10)
DX: S72.142A Displaced intertrochanteric fracture of left femur, initial encounter for closed fracture (principal); I69.354 Hemiplegia and hemiparesis following cerebral infarction affecting left non-dominant side; S51.012A Laceration without foreign body of left elbow, initial encounter; E78.5 Hyperlipidemia, unspecified; F32.9 Major depressive disorder, single episode, unspecified; N32.81 Overactive bladder; I10 Essential (primary) hypertension; D64.9 Anemia, unspecified; W10.8XXA Fall (on) (from) other stairs and steps, initial encounter; Y92.008 Other place in unspecified non-institutional (private) residence as the place of occurrence of the external cause; Y99.8 Other external cause status; Z90.710 Acquired absence of both cervix and uterus
CPT/HCPCS: 36415; 36430; 71045; 76000; 82040; 82247; 82310; 82374; 82435; 82565; 82607; 82746; 82947; 83540; 83550; 84075; 84132; 84155; 84295; 84450; 84460; 84484; 84520; 85014; 85018; 85025; 85610; 85730; 86850; 86900; 86901; 86920; 93005; 96361; 96374; 96375; 96376; 97161; 97165; 99285; C1713; J0690; J1100; J2001; J2370; J2405; J2550; J2704; J2795; J3010; J3480; J3490; J7030; J7040; J7050; P9016

== ENCOUNTER → 2017-12-08 | Outpatient (CLI) | payer MEDICARE ==
[~2017-12-08] MED LIST changes: +ACET-1966 PO; -ALTEPLASE RECOMB 2 MG VIAL IVP PRN; -DEXTROSE 5%(*) 100 ML BAG 100 ML IVPB PRN; -HEPARIN FLSH (PORT) 500 UN/5ML IVP PRN; -LIDOCAINE/SOD BICARB 8.4% SYR ID PRN; -NS(*) 0.9% 100 ML BAG 100 ML IVPB PRN; -NS(*) 0.9% 500 ML BAG 500 ML IV PRN; +OXYC-865 PO; -WATER STERILE 10 ML VIAL IVP PRN
[2017-12-09 16:31] VITALS: BMI 18.4
== END ==
LOC: AMB 17:40
PROVIDERS: ATTEND Nurse Practitioner
DX: M25.552 Pain in left hip (principal); S40.812A Abrasion of left upper arm, initial encounter; W01.0XXA Fall on same level from slipping, tripping and stumbling without subsequent striking against object, initial encounter; Y92.008 Other place in unspecified non-institutional (private) residence as the place of occurrence of the external cause
CPT/HCPCS: A0425; A0427

== ENCOUNTER 2017-12-11 10:25 | Inpatient (IN) | payer MEDICARE ==
[~2017-12-11] VITALS: Ht 152.4 cm; Wt 37.6 kg
[~2017-12-11 10:25] MED LIST changes: +OXYC-865 PO
[2017-12-11 10:50] VITALS: BP 125/81
[2017-12-11] MEDS ORDERED: ACETAMINOPHEN 500 MG TAB PO PRN (11:23)
[2017-12-11] MEDS ORDERED: MAGNESIUM HYDROXIDE* 30ML UDCP PO PRN (11:23)
[2017-12-11] MEDS ORDERED: MAGNESIUM CITRATE 300 ML BTL PO PRN (11:23)
[2017-12-11] MEDS ORDERED: BISACODYL 10 MG SUPP PR PRN (11:23)
[2017-12-11] MEDS ORDERED: SPIR25TA78 PO (14:43)
[2017-12-11] MEDS ORDERED: ACET-1966 PO (14:43)
--- NOTE | 2017-12-11 14:52 | OT ECF NOTE ---
Type of Note: Initial Note Primary Medical Diagnosis: Generalized Weakness s/p left hip ORIF Occupational Therapy Evaluation Date: 12/11/17 SUBJECTIVE: Prior Hospitalization: H 12/08/17 thru 12/11/17 Prior Level of Function: Independent with ADLs. Assist from [facility] 2x/ week for IADLs. Prior Living Status: Single level house, Alone Community Services: No known needs Home Accessibility: Stairs with rails, Tub/shower combination Equipment Owned: Front wheeled walker Rollator Cane Extended tub bench Medical Complications/Past Medical History: HTN, Hyperlipidemia, Depression, Hx of stroke, Hx of right wrist fx Psychosocial Support: Pt has children that reside out of state Pain Scale (0-10): 5/10 in left lower extremity with ambulation, aching in neck OBJECTIVE: Strength: MMT: Right Left Shoulder Flexion [*] [*] Elbow Flexion [*] [*] Wrist Extension [*] [*] Terrazzo Polisher Helper [*] [*] (5= normal, 4= good, 3= fair, 2= poor, 1= trace) ROM: Both upper extremities, Minimally limited Functional Transfer: Assistive Device: Front wheeled walker, Gait belt Transfer Ability: CGA ADL: Upper body dressing: Assistive device: None Upper body dressing ability: Set-up Lower body dressing: Assistive device: May benefit from LB AE education Lower body dressing ability: Not tested Toileting: Assistive device: Bedside commode Toileting ability: Not tested Grooming/hygiene: Assistive device: Seated Grooming ability: Set-up Bathing: Assistive device: Bathing ability: Not tested Standardized Assessment: Liliana Index of Activities of Daily Livin/20 at initial evaluation (). ASSESSMENT: Sayra presents to [facility] with decreased independence for engagement in ADLs/IADLs s/p left hip ORIF. At [facility], she was (I) with ADLs and had occasional assist from [facility] for IADLs. Currently, she requires CGA for ambulation and tolerates ambulating x8ft with RW. She will benefit from skilled OT services to optimize (I) with ADLs and improve activity tolerance for IADLs prior to discharge home where she resides alone. Problem List/Current Limitations: Pain Decreased activity tolerance Generalized weakness Short Term Goals: 1) Pt will be Mod (I) UB/LB dressing. 2) Pt will be Mod (I) toilet task. 3) Pt will be Mod (I) shower task. 4) Pt will be (I) grooming/hygiene. 5) Pt Liliana Index of ADLs score will increase by 2 points. Strand Galvanizer Goals: Return home with services Patient Goals: "I'm going to walk again" Rehabilitation Prognosis: Good Barriers to Discharge: Pain, Return to high PLOF for discharge home alone PLAN: The patient will benefit from skilled occupational therapy services 5 times per week for 2 weeks including: Ther ex ADL training Safety training Ther act IADL training Transfer training Adaptive equip training Bed mobility Energy conservation Thank you for this referral. If you have any questions, concerns, or comments about this report or plan, please contact me at . Delmy Olvera MS, OTR/L Occupational Therapist J CARLOS
--- NOTE | 2017-12-11 15:35 | Medical Nutrition Therapy ---
Nutrition Anthropometrics Height (Inches): 60.00 Weight (Pounds): 94 BMI Calculated: 18.36 Braxton Nutrition Score: Probably Inadequate Braxton Nutrition Risk Score: 17 Dietary Referral Nutrition Risk Factors: Unplanned Loss >10lbs, Diff. Swallowing Nutrition Risk Comment: Physical Findings Physical Appearance: Underweight BMI<19 Skin Appearance Skin Appearance: Edema Edema Location Modifier: Edema Location: Type of Edema: Degree of Edema: Gastrointestinal Symptoms GI Symtoms: Tube Present: Bowel Sounds: Recent Bowel Pattern: Constipated Stool Characteristics: Nutritional Diagnosis Nutritional Risk Acuity 3: OR & > 80 yrs, Fx & > 80 yrs Past Medical History: depression, CVA, HTN, anemia, OAB, hip fracture Nutritional Acuity: 3-Mild Energy Requirement: 1021 (Miff-St. J AF 1.3) Protein Requirement: 42 (1 g/kg) Fluid Requirement: 1050 (25 mL/kg) Diet Type: Regular Nutrition Intervention: Cont diet as ordered, Encourage intake Food Likes: likes to graze, she likes tomato juice, hot tea w/ 3 sugars Food Dislikes: no crumb catcher please, just a napkin Optional Order Time?: No Diet Comment To RSA: Protein powder in appropriate foods please. Snacks: peanut butter crackers Nutrition Monitoring & Eval Nutrition Goals: Eat 50-100% Meal RD Patient Assessment Time: [address] Assessment Type: RD Assessment Patient Nutrition Acuity: 3-Mild Follow Up Date: Dec 15, 2017 Nutritional Comment: 12/11)Pt. admitted post hip sx. Labs 12/11) Na 132, Alb 3.1 Weight from the med floor on 12/08) 42.8 kg. Regular diet, po intake 75% x 1 meal. No preference when meals are delivered. Monitor labs, weight, po intake JUNIOR PATRICK Dec 11, 2017 15:31
[2017-12-11 16:14] VITALS: BP 124/76
--- NOTE | 2017-12-11 16:20 | PT ECF NOTE ---
Type of Note: Initial Note Primary Medical Diagnosis: L) hip fracture, s/p gamma nail *WBAT* Physical Therapy Evaluation Date: 12/11/17 SUBJECTIVE: Prior Hospitalization: [facility] 12/08/17-12/11/17 Prior Level of Function: Reg with occasional use of SPC Prior Living Status: Multilevel house, Alone Community Services: Support adequate, [facility] services 2x/week Home Accessibility: 3 stairs with rails Equipment Owned: Rollator, Cane Medical Complications/Past Medical History: See EMR Psychosocial Support: Supportive children, no children live in [place] Pain Scale (0-10): 5/10 pain in L) hip with ambulation OBJECTIVE: Strength: Right Lower Extremity: DF: 4/5 Knee flexion: 4/5 Knee extension: 3+/5 Hip flexion: 3+/5 Left Lower Extremity: DF: 4/5 Knee flexion: 3/5 Knee extension: <3/5 Hip flexion: <3/5 ROM: (please note any abnormalities) L) LE AROM limited at this time, s/p gamma nail fixation Sensation: (please note any abnormalities) No abnormalities noted Other Neuro findings: Pt with h/o CVA affecting L) side, pt reports the R) LE is "weaker" at baseline though Bed Mobility: Not tested, pt up in chair Transfers: CGA with RW Gait: CGA x8' with RW Stairs: NT Timed Up and Go (>12 seconds indicated increased risk for falls):NT, pt unable to ambulate adequate distance ASSESSMENT: PT/OT co-eval complete on ECF. Pt reports minimal pain at rest, 5/ 10 pain in the L) LE with mobility. CGA for STS transfers with requiring increased time for ambulation, reporting UE fatigue. Pt will benefit from skilled PT intervention in order to increase independence with functional mobility to allow for safe d/c to prior living setting with a decreased risk of falls. Problem List/Current Limitations: Pain Decreased activity loren Decreased strength Decreased ROM Decreased balance Short Term Goals: 1: Pt to complete bed mobility with Reg 2: Pt to complete transfers with Reg 3: Pt to ambulate 250' with Reg and least restrictive AD 4: Pt to asc/desc 2x4 stairs with SBA [employer] Instructor Goals: Pt to d/c home with a decreased risk of falls Patient Goals: "Walk again" Rehabilitation Prognosis: Good Barriers for Discharge: High level of functional independence required to d/ c home. PLAN: The patient will benefit from skilled physical therapy services 5 times per week for 2 weeks including: Therapeutic Exercise Therapeutic Activities Transfer Training Gait Training Stair Training Manual Therapy Safety Training Neuromuscular Re-educ. Pt/Caregiver Training Bed Mobility Thank you for this referral. If you have any questions, concerns, or comments about this report or plan, please contact me at . Ana Bhandari, PT, DPT MTDD
[2017-12-11] MEDS: DOCUSATE SODIUM 100 MG CAP PO SCH (19:42)
[2017-12-12 06:31] LABS: PLATELET COUNT, AUTOMATED 166 K/uL (150-450)
--- NOTE | 2017-12-12 06:41 | RADIOLOGY IMAGING REPORT ---
FACILITY: [facility] PATIENT NAME: Sayra Hayward : 1930 MR: [id number] V: [id number] EXAM DATE: ORDERING PHYSICIAN: TONY BHANDARI TECHNOLOGIST: Location: [facility] - [place] Patient: Sayra Hayward : 1930 Visit/Account:[id number] Date of Sevice: 12/12/2017 PORTABLE CHEST: Indication: Hypoxia. Fever. Technique: A single frontal film was obtained. Comparison: 12/08/2017 Skeletal and soft tissue structures: Intact and unchanged. Heart and mediastinum: Stable. Lung montanez: There is minimal ill-defined opacity at the left base, compatible with atelectasis or ac doreen inflammation. The lungs are otherwise clear. Pleural spaces: No evidence of pneumothorax or significant effusion. Impression: Minimal left basilar opacity, compatible with atelectasis or inflammation. Report Dictated By: Fidel Lopes MD at 12/12/2017 6:36 AM Report E-Signed By: Fidel Lopes MD at 12/12/2017 6:38 AM WSN:[id number]
[2017-12-12 08:00] VITALS: BP 158/87
[2017-12-12] MEDS: ATORVASTATIN 40 MG TAB PO SCH (09:24)
[2017-12-12] MEDS: POLYETHYLENE GLYCOL 17 GM PKT PO SCH (09:25)
[2017-12-12] MEDS: DOCUSATE SODIUM 100 MG CAP PO SCH ×2 (09:25→21:37)
[2017-12-12] MEDS: METOPROLOL SUCC XL 25 MG TABCR PO SCH (09:25)
[2017-12-12] MEDS: ASPIRIN 325 MG ENTERIC COATED PO SCH (09:25)
[2017-12-12] MEDS: CITALOPRAM HYDROBROM 20 MG TAB PO SCH (09:25)
[2017-12-12 16:30] VITALS: BP 151/81
[2017-12-12] MEDS ORDERED: CEFUROXIME AXETIL 250 MG TAB PO ONE (17:30)
[2017-12-12] MEDS ORDERED: DOXYCYCLINE HYCL 100 MG TAB PO ONE (17:30)
--- NOTE | 2017-12-12 21:49 | Hospitalist Progress Note ---
Subjective Progress Notes Subjective Complains of a slight cough. Has had increased O2 requirements. Fever today. Physical Exam Vital Signs Date Time Temp Pulse Resp B/P (MAP) Pulse Ox O2 Delivery O2 Flow Rate FiO2 12/12/17 20:26 98.7 91 95 Nasal Cannula 1.5 12/12/17 16:30 20 151/81 (104) Intake and Output 12/13/17 07:00 Intake Total 840 ml Balance 840 ml Intake Oral 840 ml # Voids 3 General Appearance: Alert, Awake, No Acute Distress Neuro: No Gross deficits Cardiovascular: Regular Rate and Rhythm Respiratory: Other (Very slightly diminished BS L base.) GI: Soft and Non-Tender Extremities: Warm, Perfused Integumentary: Other (Bruising over L thigh. Bandage in place laterally.) Psych: Alert & Oriented X3, Appropriate Mood & Affect Result Diagram: 12/12/17 0614 Assessment and Plan Problems: (1) Pneumonia Status: Acute Assessment & Plan: Increased O2 requirements and fever. CXR shows LLL infiltrate. Will start oral Ceftin and doxycycline. Recheck labs in am. (2) Closed left hip fracture Status: Acute Assessment & Plan: Repaired. [facility]. On ASA for DVT prophylaxis. (3) Hypertension Status: Chronic Assessment & Plan: Continue metoprolol. (4) Depression Status: Chronic Assessment & Plan: Continue citalopram. (5) Stroke Status: Chronic Assessment & Plan: Continue ASA daily. (6) Hyperlipemia Status: Chronic Assessment & Plan: Continue atorvastatin. Time Spent on Plan of Care: < 30 min GATO PETTY MD Dec 12, 2017 21:49
[2017-12-13 06:25] LABS: PLATELET COUNT, AUTOMATED 192 K/uL (150-450)
[2017-12-13 07:30] VITALS: BP 152/75
[2017-12-13] MEDS: POLYETHYLENE GLYCOL 17 GM PKT PO SCH (08:54)
[2017-12-13] MEDS: ASPIRIN 325 MG ENTERIC COATED PO SCH (08:54)
[2017-12-13] MEDS: DOCUSATE SODIUM 100 MG CAP PO SCH ×2 (08:54→21:00)
[2017-12-13] MEDS: METOPROLOL SUCC XL 25 MG TABCR PO SCH (08:54)
[2017-12-13] MEDS: DOXYCYCLINE HYCL 100 MG TAB PO SCH ×2 (08:54→21:06)
[2017-12-13] MEDS: ATORVASTATIN 40 MG TAB PO SCH (08:54)
[2017-12-13] MEDS: CITALOPRAM HYDROBROM 20 MG TAB PO SCH (08:54)
[2017-12-13] MEDS: CEFUROXIME AXETIL 250 MG TAB PO SCH ×2 (08:55→21:06)
[2017-12-13 15:25] VITALS: BP 132/73
[2017-12-14 07:38] VITALS: BP 149/75
[2017-12-14] MEDS: METOPROLOL SUCC XL 25 MG TABCR PO SCH (08:48)
[2017-12-14] MEDS: ASPIRIN 325 MG ENTERIC COATED PO SCH (08:48)
[2017-12-14] MEDS: CEFUROXIME AXETIL 250 MG TAB PO SCH ×2 (08:49→20:25)
[2017-12-14] MEDS: CITALOPRAM HYDROBROM 20 MG TAB PO SCH (08:49)
[2017-12-14] MEDS: ATORVASTATIN 40 MG TAB PO SCH (08:49)
[2017-12-14] MEDS: DOXYCYCLINE HYCL 100 MG TAB PO SCH ×2 (08:49→20:25)
[2017-12-14] MEDS: DOCUSATE SODIUM 100 MG CAP PO SCH ×2 (08:50→20:25)
[2017-12-14] MEDS: POLYETHYLENE GLYCOL 17 GM PKT PO SCH (08:51)
[2017-12-14] MEDS: PROMETHAZINE HCL 25 MG TAB PO PRN ×2 (11:52→20:27)
--- NOTE | 2017-12-14 12:22 | Medical Nutrition Therapy ---
Nutrition Anthropometrics Height (Inches): 60.00 Height (Calculated Centimeters: 152.940597 Weight (Pounds): 98 Weight (Calculated Kilograms): 44.537 BMI Calculated: 18.36 Braxton Nutrition Score: Probably Inadequate Braxton Nutrition Risk Score: 17 Dietary Referral Nutrition Risk Factors: Unplanned Loss >10lbs, Diff. Swallowing Nutrition Risk Comment: Physical Findings Physical Appearance: Underweight BMI<19 Skin Appearance Skin Appearance: Edema Edema Location Modifier: Edema Location: Type of Edema: Degree of Edema: Gastrointestinal Symptoms GI Symtoms: Constipation, Change in Bowel Pattern Tube Present: Bowel Sounds: Recent Bowel Pattern: Constipated Stool Characteristics: Nutritional Diagnosis Nutritional Risk Acuity 3: OR & > 80 yrs, Fx & > 80 yrs Past Medical History: depression, CVA, HTN, anemia, OAB, hip fracture Nutritional Acuity: 3-Mild Energy Requirement: 1021 (Miff-St. J AF 1.3) Protein Requirement: 42 (1 g/kg) Fluid Requirement: 1050 (25 mL/kg) Diet Type: Regular Nutrition Intervention: Cont diet as ordered, Encourage intake Food Likes: likes to graze, she likes tomato juice, hot tea w/ 3 sugars Food Dislikes: no crumb catcher please, just a napkin Optional Order Time?: No Diet Comment To RSA: Protein powder in appropriate foods please. Snacks: peanut butter crackers Nutrition Monitoring & Eval Nutrition Goals: Eat 50-100% Meal RD Patient Assessment Time: [address] Assessment Type: RD Re-Assessment Patient Nutrition Acuity: 3-Mild Follow Up Date: Dec 22, 2017 Nutritional Comment: 12/11)Pt. admitted post hip sx. Labs 12/11) Na 132, Alb 3.1 Weight from the med floor on 12/08) 42.8 kg. Regular diet, po intake 75% x 1 meal. No preference when meals are delivered. Monitor labs, weight, po intake 12/14) Pt. complains of slight cough. Fever today. Regular diet. po intake 50%, 100% past 2 meals. Labs 12/13) Na 130, Ca 8.2. Will monitor labs, po intake, weight. JUNIOR PATRICK Dec 14, 2017 12:01
[2017-12-14 16:15] VITALS: BP 153/83
[2017-12-15 07:40] VITALS: BP 145/78
[2017-12-15] MEDS: DOCUSATE SODIUM 100 MG CAP PO SCH ×2 (08:18→20:36)
[2017-12-15] MEDS: CITALOPRAM HYDROBROM 20 MG TAB PO SCH (08:18)
[2017-12-15] MEDS: DOXYCYCLINE HYCL 100 MG TAB PO SCH ×2 (08:19→20:36)
[2017-12-15] MEDS: ATORVASTATIN 40 MG TAB PO SCH (08:19)
[2017-12-15] MEDS: CEFUROXIME AXETIL 250 MG TAB PO SCH ×2 (08:19→20:36)
[2017-12-15] MEDS: METOPROLOL SUCC XL 25 MG TABCR PO SCH (08:19)
[2017-12-15] MEDS: ASPIRIN 325 MG ENTERIC COATED PO SCH (08:19)
[2017-12-15] MEDS: POLYETHYLENE GLYCOL 17 GM PKT PO SCH (08:20)
[2017-12-15 16:25] VITALS: BP 139/87
[2017-12-16 07:45] VITALS: BP 147/71
[2017-12-16] MEDS: DOXYCYCLINE HYCL 100 MG TAB PO SCH ×2 (08:40→20:37)
[2017-12-16] MEDS: DOCUSATE SODIUM 100 MG CAP PO SCH ×2 (08:40→20:37)
[2017-12-16] MEDS: POLYETHYLENE GLYCOL 17 GM PKT PO SCH (08:40)
[2017-12-16] MEDS: CITALOPRAM HYDROBROM 20 MG TAB PO SCH (08:40)
[2017-12-16] MEDS: METOPROLOL SUCC XL 25 MG TABCR PO SCH (08:40)
[2017-12-16] MEDS: ASPIRIN 325 MG ENTERIC COATED PO SCH (08:40)
[2017-12-16] MEDS: ATORVASTATIN 40 MG TAB PO SCH (08:41)
[2017-12-16] MEDS: CEFUROXIME AXETIL 250 MG TAB PO SCH ×2 (08:41→20:37)
--- NOTE | 2017-12-16 14:33 | Hospitalist Progress Note ---
Subjective Progress Notes Subjective The patient has developed swelling in her L lower leg. Physical Exam Vital Signs Date Time Temp Pulse Resp B/P (MAP) Pulse Ox O2 Delivery O2 Flow Rate FiO2 12/16/17 11:45 100 Nasal Cannula 2.0 12/16/17 07:45 98.1 73 16 147/71 (96) Intake and Output 12/17/17 07:00 Intake Total 480 ml Balance 480 ml Intake Oral 480 ml # Voids 2 General Appearance: Alert, Awake Neuro: No Gross deficits Eyes: PERRLA Cardiovascular: Regular Rate and Rhythm Respiratory: Other (Slight wheeze left lower lung.) GI: Soft and Non-Tender Extremities: Warm, Perfused, Other (Trace to 1+ edema L lower extremity.) Result Diagram: 12/13/1754412/13/17544 Assessment and Plan Problems: (1) Pneumonia Status: Acute Assessment & Plan: Increased O2 requirements and fever. CXR shows LLL infiltrate. She was started on Ceftin and doxycycline. Recheck labs on Thursday. (2) Leg swelling Status: Acute Assessment & Plan: Will order venous doppler. If negative, will continue Fortunato hose and restart spironolactone 12.5mg daily. (3) Closed left hip fracture Status: Acute Assessment & Plan: Repaired. Transferred to [facility] for ongoing rehabilitation. On ASA for DVT prophylaxis. (4) Hypertension Status: Chronic Assessment & Plan: Continue metoprolol. (5) Depression Status: Chronic Assessment & Plan: Continue citalopram. (6) Stroke Status: Chronic Assessment & Plan: Continue ASA daily. (7) Hyperlipemia Status: Chronic Assessment & Plan: Continue atorvastatin. Time Spent on Plan of Care: < 30 min GTAO PETTY MD Dec 16, 2017 14:33
--- NOTE | 2017-12-16 16:38 | RADIOLOGY IMAGING REPORT ---
FACILITY[place] [facility] [place]IENT NAME: Sayra Hayward : 1930 MR: [id number] V: [id number] EXAM DATE: ORDERING PHYSICIAN: GATO PETTY TECHNOLOGIST: Location: [facility] [place] Patient: Sayra Hayward : 1930 Visit/Account:[id number] Date of Sevice: 12/16/2017 Exam type: VENOUS DOPP LOW LEFT EXTREMITY History: Left leg swelling one week post hip surgery Comparison: None. Findings: The left lower extremity veins were imaged including the left common femoral vein greater saphenous v ein superficial femoral vein popliteal vein posterior tibial vein peroneal vein revealing no evidence of intraluminal thrombi. The veins were compressible and demonstrated phasic flow IMPRESSION: 1. No sonographic evidence DVT involving the left lower extremity veins Report Dictated By: Dinora Sweet MD at 12/16/2017 4:33 PM Report E-Signed By: Dinora Sweet MD at 12/16/2017 4:34 PM WSN:[id number]
[2017-12-16 19:00] VITALS: BP 135/75
[2017-12-17 07:25] VITALS: BP 140/77
[2017-12-17] MEDS: POLYETHYLENE GLYCOL 17 GM PKT PO SCH (09:27)
[2017-12-17] MEDS: CEFUROXIME AXETIL 250 MG TAB PO SCH ×2 (09:27→20:21)
[2017-12-17] MEDS: DOXYCYCLINE HYCL 100 MG TAB PO SCH ×2 (09:28→20:21)
[2017-12-17] MEDS: DOCUSATE SODIUM 100 MG CAP PO SCH ×2 (09:28→20:21)
[2017-12-17] MEDS: POTASSIUM CHL 10 MEQ TABCR PO SCH (09:28)
[2017-12-17] MEDS: ASPIRIN 325 MG ENTERIC COATED PO SCH (09:28)
[2017-12-17] MEDS: METOPROLOL SUCC XL 25 MG TABCR PO SCH (09:28)
[2017-12-17] MEDS: ATORVASTATIN 40 MG TAB PO SCH (09:28)
[2017-12-17] MEDS: SPIRONOLACTONE 25 MG TAB PO SCH (09:29)
[2017-12-17] MEDS: CITALOPRAM HYDROBROM 20 MG TAB PO SCH (09:30)
[2017-12-17] MEDS: PROMETHAZINE HCL 25 MG TAB PO PRN (13:44)
[2017-12-17 17:00] VITALS: BP 143/71
[2017-12-18] MEDS: POLYETHYLENE GLYCOL 17 GM PKT PO SCH (08:46)
[2017-12-18] MEDS: METOPROLOL SUCC XL 25 MG TABCR PO SCH (08:46)
[2017-12-18] MEDS: CITALOPRAM HYDROBROM 20 MG TAB PO SCH (08:46)
[2017-12-18] MEDS: SPIRONOLACTONE 25 MG TAB PO SCH (08:47)
[2017-12-18] MEDS: DOCUSATE SODIUM 100 MG CAP PO SCH ×2 (08:47→20:38)
[2017-12-18] MEDS: POTASSIUM CHL 10 MEQ TABCR PO SCH (08:47)
[2017-12-18] MEDS: CEFUROXIME AXETIL 250 MG TAB PO SCH ×2 (08:47→20:38)
[2017-12-18] MEDS: ATORVASTATIN 40 MG TAB PO SCH (08:47)
[2017-12-18] MEDS: ASPIRIN 325 MG ENTERIC COATED PO SCH (08:47)
[2017-12-18] MEDS: DOXYCYCLINE HYCL 100 MG TAB PO SCH ×2 (08:47→20:38)
[2017-12-18 08:57] VITALS: BP 130/75
[2017-12-18 17:14] VITALS: BP 128/72
[2017-12-18] MEDS: PROMETHAZINE HCL 25 MG TAB PO PRN (22:23)
[2017-12-19 06:07] LABS: PLATELET COUNT, AUTOMATED 395 K/uL (150-450)
[2017-12-19 08:27] VITALS: BP 121/78
[2017-12-19] MEDS: POLYETHYLENE GLYCOL 17 GM PKT PO SCH (09:00)
[2017-12-19 09:17] VITALS: BP 150/83
[2017-12-19] MEDS: SPIRONOLACTONE 25 MG TAB PO SCH (09:19)
[2017-12-19] MEDS: POTASSIUM CHL 10 MEQ TABCR PO SCH (09:19)
[2017-12-19] MEDS: CEFUROXIME AXETIL 250 MG TAB PO SCH ×2 (09:19→20:19)
[2017-12-19] MEDS: CITALOPRAM HYDROBROM 20 MG TAB PO SCH (09:19)
[2017-12-19] MEDS: METOPROLOL SUCC XL 25 MG TABCR PO SCH (09:19)
[2017-12-19] MEDS: DOXYCYCLINE HYCL 100 MG TAB PO SCH ×2 (09:20→20:19)
[2017-12-19] MEDS: ATORVASTATIN 40 MG TAB PO SCH (09:20)
[2017-12-19] MEDS: ASPIRIN 325 MG ENTERIC COATED PO SCH (09:20)
[2017-12-19] MEDS: DOCUSATE SODIUM 100 MG CAP PO SCH ×2 (09:20→20:19)
--- NOTE | 2017-12-19 12:58 | Miscellaneous Provider Note ---
Miscellaneous Provider Note Note Small dose of spironolactone restarted. Sodium improved to 132. GATO PETTY MD Dec 19, 2017 12:58
[2017-12-19] MEDS: PROMETHAZINE HCL 25 MG TAB PO PRN (15:44)
[2017-12-19 16:05] VITALS: BP 144/72
[2017-12-19 18:13] VITALS: BP 169/96
[2017-12-20 07:41] VITALS: BP 143/80
[2017-12-20] MEDS: DOXYCYCLINE HYCL 100 MG TAB PO SCH ×2 (09:07→21:24)
[2017-12-20] MEDS: POLYETHYLENE GLYCOL 17 GM PKT PO SCH (09:08)
[2017-12-20] MEDS: ATORVASTATIN 40 MG TAB PO SCH (09:08)
[2017-12-20] MEDS: DOCUSATE SODIUM 100 MG CAP PO SCH ×2 (09:08→21:24)
[2017-12-20] MEDS: ASPIRIN 325 MG ENTERIC COATED PO SCH (09:08)
[2017-12-20] MEDS: SPIRONOLACTONE 25 MG TAB PO SCH (09:08)
[2017-12-20] MEDS: POTASSIUM CHL 10 MEQ TABCR PO SCH (09:08)
[2017-12-20] MEDS: CITALOPRAM HYDROBROM 20 MG TAB PO SCH (09:08)
[2017-12-20] MEDS: CEFUROXIME AXETIL 250 MG TAB PO SCH ×2 (09:08→21:24)
[2017-12-20] MEDS: METOPROLOL SUCC XL 25 MG TABCR PO SCH (09:08)
[2017-12-20 15:44] VITALS: BP 143/74
[2017-12-21 07:45] VITALS: BP 147/77
[2017-12-21] MEDS: METOPROLOL SUCC XL 25 MG TABCR PO SCH (08:44)
[2017-12-21] MEDS: ASPIRIN 325 MG ENTERIC COATED PO SCH (08:44)
[2017-12-21] MEDS: CEFUROXIME AXETIL 250 MG TAB PO SCH ×2 (08:44→20:32)
[2017-12-21] MEDS: DOCUSATE SODIUM 100 MG CAP PO SCH ×2 (08:44→20:33)
[2017-12-21] MEDS: DOXYCYCLINE HYCL 100 MG TAB PO SCH ×2 (08:44→20:34)
[2017-12-21] MEDS: POTASSIUM CHL 10 MEQ TABCR PO SCH (08:45)
[2017-12-21] MEDS: CITALOPRAM HYDROBROM 20 MG TAB PO SCH (08:45)
[2017-12-21] MEDS: POLYETHYLENE GLYCOL 17 GM PKT PO SCH (08:45)
[2017-12-21] MEDS: SPIRONOLACTONE 25 MG TAB PO SCH (08:45)
[2017-12-21] MEDS: ATORVASTATIN 40 MG TAB PO SCH (08:45)
[2017-12-21 15:45] VITALS: BP 136/70
[2017-12-22 07:30] VITALS: BP 152/83
[2017-12-22] MEDS: DOCUSATE SODIUM 100 MG CAP PO SCH ×2 (08:22→20:43)
[2017-12-22] MEDS: SPIRONOLACTONE 25 MG TAB PO SCH (08:22)
[2017-12-22] MEDS: CITALOPRAM HYDROBROM 20 MG TAB PO SCH (08:22)
[2017-12-22] MEDS: POTASSIUM CHL 10 MEQ TABCR PO SCH (08:22)
[2017-12-22] MEDS: DOXYCYCLINE HYCL 100 MG TAB PO SCH ×2 (08:22→20:43)
[2017-12-22] MEDS: METOPROLOL SUCC XL 25 MG TABCR PO SCH (08:22)
[2017-12-22] MEDS: CEFUROXIME AXETIL 250 MG TAB PO SCH ×2 (08:22→20:43)
[2017-12-22] MEDS: ATORVASTATIN 40 MG TAB PO SCH (08:23)
[2017-12-22] MEDS: ASPIRIN 325 MG ENTERIC COATED PO SCH (08:23)
[2017-12-22] MEDS: POLYETHYLENE GLYCOL 17 GM PKT PO SCH (08:23)
[2017-12-22] MEDS: PROMETHAZINE HCL 25 MG TAB PO PRN (09:35)
--- NOTE | 2017-12-22 16:13 | Medical Nutrition Therapy ---
Nutrition Anthropometrics Height (Inches): 60.00 Height (Calculated Centimeters: 152.372585 Weight (Pounds): 93 Weight (Calculated Kilograms): 42.184 BMI Calculated: 18.36 Braxton Nutrition Score: Probably Inadequate Braxtno Nutrition Risk Score: 17 Dietary Referral Nutrition Risk Factors: Unplanned Loss >10lbs, Diff. Swallowing Nutrition Risk Comment: Physical Findings Physical Appearance: Underweight BMI<19 Skin Appearance Skin Appearance: Edema Edema Location Modifier: Left Edema Location: Ankle Type of Edema: Degree of Edema: 2+ Gastrointestinal Symptoms GI Symtoms: Nausea, Vomiting Tube Present: Bowel Sounds: Recent Bowel Pattern: Constipated Stool Characteristics: Nutritional Diagnosis Nutritional Risk Acuity 3: OR & > 80 yrs, Fx & > 80 yrs Past Medical History: depression, CVA, HTN, anemia, OAB, hip fracture Nutritional Acuity: 3-Mild Energy Requirement: 1021 Protein Requirement: 42 Fluid Requirement: 1050 Diet Type: Regular Nutrition Intervention: Cont diet as ordered, Encourage intake Food Likes: please mix butter and sour cream in with baked potato Food Dislikes: no crumb catcher please, just a napkin Optional Order Time?: No Diet Comment To RSA: Protein powder in appropriate foods please. Snacks: peanut butter crackers Nutrition Monitoring & Eval Nutrition Goals: Eat 50-100% Meal RD Patient Assessment Time: [address] Assessment Type: RD Re-Assessment Patient Nutrition Acuity: 3-Mild Follow Up Date: Dec 29, 2017 Nutritional Comment: 12/11)Pt. admitted post hip sx. Labs 12/11) Na 132, Alb 3.1 Weight from the med floor on 12/08) 42.8 kg. Regular diet, po intake 75% x 1 meal. No preference when meals are delivered. Monitor labs, weight, po intake 12/14) Pt. complains of slight cough. Fever today. Regular diet. po intake 50%, 100% past 2 meals. Labs 12/13) Na 130, Ca 8.2. Will monitor labs, po intake, weight. 12/22) Po intake ranging from 50%-70%. Labs: 12/19) BUN 19, Na 132. Weight: 12/18) 42 kg which is stable. Will continue to monitor labs, po intake, weight. JUNIOR PATRICK Dec 22, 2017 10:47
[2017-12-22 17:00] VITALS: BP 141/74
[2017-12-23 08:30] VITALS: BP 161/87
[2017-12-23] MEDS: POLYETHYLENE GLYCOL 17 GM PKT PO SCH (08:54)
[2017-12-23] MEDS: CEFUROXIME AXETIL 250 MG TAB PO SCH ×2 (08:54→20:20)
[2017-12-23] MEDS: CITALOPRAM HYDROBROM 20 MG TAB PO SCH (08:55)
[2017-12-23] MEDS: ATORVASTATIN 40 MG TAB PO SCH (08:55)
[2017-12-23] MEDS: SPIRONOLACTONE 25 MG TAB PO SCH (08:55)
[2017-12-23] MEDS: DOCUSATE SODIUM 100 MG CAP PO SCH ×2 (08:55→20:20)
[2017-12-23] MEDS: ASPIRIN 325 MG ENTERIC COATED PO SCH (08:55)
[2017-12-23] MEDS: DOXYCYCLINE HYCL 100 MG TAB PO SCH ×2 (08:55→20:20)
[2017-12-23] MEDS: POTASSIUM CHL 10 MEQ TABCR PO SCH (08:55)
[2017-12-23] MEDS: METOPROLOL SUCC XL 25 MG TABCR PO SCH (08:55)
--- NOTE | 2017-12-23 10:20 | Hospitalist Progress Note ---
Subjective Progress Notes Subjective No new complaints. Physical Exam Vital Signs Date Time Temp Pulse Resp B/P (MAP) Pulse Ox O2 Delivery O2 Flow Rate FiO2 12/23/17 08:30 98.6 83 16 161/87 (111) 93 Room Air 12/23/17 02:02 1.0 Intake and Output 12/24/17 07:00 # Voids 1 General Appearance: Alert, Awake, No Acute Distress, Afebrile Neuro: No Gross deficits Eyes: PERRLA Cardiovascular: Regular Rate and Rhythm Respiratory: Clear to Auscultation GI: Soft and Non-Tender Extremities: Warm, Perfused Psych: Appropriate Mood & Affect Result Diagram: 12/19/1754512/19/17545 Assessment and Plan Problems: (1) Pneumonia Status: Acute Assessment & Plan: The patient developed increased O2 requirements and fever. CXR showed LLL infiltrate. She was treated with Ceftin and doxycycline. She completed her course of antibiotics and is now afebrile and asymptomatic. (2) Leg swelling Status: Acute Assessment & Plan: Venous doppler was negative. Will continue Fortunato hose and restart spironolactone 12.5mg daily. (3) Closed left hip fracture Status: Acute Assessment & Plan: Repaired. Transferred to [facility] for ongoing rehabilitation. On ASA for DVT prophylaxis. (4) Hypertension Status: Chronic Assessment & Plan: Continue metoprolol. (5) Depression Status: Chronic Assessment & Plan: Continue citalopram. (6) Stroke Status: Chronic Assessment & Plan: Continue ASA daily. (7) Hyperlipemia Status: Chronic Assessment & Plan: Continue atorvastatin. Time Spent on Plan of Care: < 30 min GATO PETTY MD Dec 23, 2017 10:20
[2017-12-23 16:24] VITALS: BP 137/77
[2017-12-24] MEDS: DOXYCYCLINE HYCL 100 MG TAB PO SCH ×2 (09:21→20:28)
[2017-12-24] MEDS: CEFUROXIME AXETIL 250 MG TAB PO SCH ×2 (09:21→20:29)
[2017-12-24] MEDS: POTASSIUM CHL 10 MEQ TABCR PO SCH (09:21)
[2017-12-24] MEDS: CITALOPRAM HYDROBROM 20 MG TAB PO SCH (09:21)
[2017-12-24] MEDS: METOPROLOL SUCC XL 25 MG TABCR PO SCH (09:22)
[2017-12-24] MEDS: ASPIRIN 325 MG ENTERIC COATED PO SCH (09:22)
[2017-12-24] MEDS: DOCUSATE SODIUM 100 MG CAP PO SCH ×2 (09:22→20:28)
[2017-12-24] MEDS: SPIRONOLACTONE 25 MG TAB PO SCH (09:22)
[2017-12-24] MEDS: POLYETHYLENE GLYCOL 17 GM PKT PO SCH (09:22)
[2017-12-24] MEDS: ATORVASTATIN 40 MG TAB PO SCH (09:22)
[2017-12-24 09:29] VITALS: BP 144/68
[2017-12-24 16:25] VITALS: BP 162/78
--- NOTE | 2017-12-25 08:23 | Pharmacy Note ---
Pharmacy Note Note: Based on patient's pain she is still requiring Percocet will renew for another 14 days and re-evaluate. ANGLE SIMS Dec 25, 2017 08:23
[2017-12-25 08:57] VITALS: BP 161/74
[2017-12-25] MEDS: POLYETHYLENE GLYCOL 17 GM PKT PO SCH (09:00)
[2017-12-25] MEDS: POTASSIUM CHL 10 MEQ TABCR PO SCH (09:01)
[2017-12-25] MEDS: METOPROLOL SUCC XL 25 MG TABCR PO SCH (09:01)
[2017-12-25] MEDS: DOXYCYCLINE HYCL 100 MG TAB PO SCH ×2 (09:01→20:19)
[2017-12-25] MEDS: ATORVASTATIN 40 MG TAB PO SCH (09:01)
[2017-12-25] MEDS: CITALOPRAM HYDROBROM 20 MG TAB PO SCH (09:02)
[2017-12-25] MEDS: SPIRONOLACTONE 25 MG TAB PO SCH (09:02)
[2017-12-25] MEDS: CEFUROXIME AXETIL 250 MG TAB PO SCH ×2 (09:02→20:19)
[2017-12-25] MEDS: DOCUSATE SODIUM 100 MG CAP PO SCH ×2 (09:02→20:19)
[2017-12-25] MEDS: ASPIRIN 325 MG ENTERIC COATED PO SCH (09:02)
[2017-12-25 16:50] VITALS: BP 170/83
[2017-12-26 07:57] VITALS: BP 164/79
[2017-12-26] MEDS: CEFUROXIME AXETIL 250 MG TAB PO SCH ×2 (08:46→20:20)
[2017-12-26] MEDS: DOXYCYCLINE HYCL 100 MG TAB PO SCH ×2 (08:46→20:20)
[2017-12-26] MEDS: POLYETHYLENE GLYCOL 17 GM PKT PO SCH (08:46)
[2017-12-26] MEDS: DOCUSATE SODIUM 100 MG CAP PO SCH ×2 (08:47→20:20)
[2017-12-26] MEDS: METOPROLOL SUCC XL 25 MG TABCR PO SCH (08:47)
[2017-12-26] MEDS: POTASSIUM CHL 10 MEQ TABCR PO SCH (08:47)
[2017-12-26] MEDS: ATORVASTATIN 40 MG TAB PO SCH (08:47)
[2017-12-26] MEDS: SPIRONOLACTONE 25 MG TAB PO SCH (08:47)
[2017-12-26] MEDS: CITALOPRAM HYDROBROM 20 MG TAB PO SCH (08:47)
[2017-12-26] MEDS: ASPIRIN 325 MG ENTERIC COATED PO SCH (08:47)
--- NOTE | 2017-12-26 12:28 | RADIOLOGY IMAGING REPORT ---
FACILITY: PATIENT NAME: Sayra Hayward : 1930 MR: [id number] V: [id number] EXAM DATE: ORDERING PHYSICIAN: KARENA CURRY TECHNOLOGIST: Location: [facility] Patient: Sayra Hayward : 1930 Visit/Account:[id number] Date of Sevice: 12/26/2017 HIP LEFT HISTORY: Fracture COMPARISON: 12/08/2017 FINDINGS: Left hip: Intramedullary fransico with compression screw traversing a intertrochanteric fracture in good a lignment. Continued displacement of the lesser trochanter. No significant degenerative changes. No ev idence of AVN. Pubic rami are intact. Pubic symphysis and SI joints: Normal Soft tissues: Normal Other findings: None significant IMPRESSION: 1. Interval ORIF of a left intertrochanteric fracture in good alignment. Continued displacement of th e lesser trochanter. Report Dictated By: Rosalino Andres MD at 12/26/2017 12:22 PM Report E-Signed By: Rosalino Andres MD at 12/26/2017 12:24 PM WSN:[id number]
[2017-12-26 17:34] VITALS: BP 151/89
[2017-12-27 07:20] VITALS: BP 157/76
[2017-12-27] MEDS: DOCUSATE SODIUM 100 MG CAP PO SCH ×2 (09:04→21:00)
[2017-12-27] MEDS: DOXYCYCLINE HYCL 100 MG TAB PO SCH (09:04)
[2017-12-27] MEDS: POLYETHYLENE GLYCOL 17 GM PKT PO SCH (09:04)
[2017-12-27] MEDS: POTASSIUM CHL 10 MEQ TABCR PO SCH (09:05)
[2017-12-27] MEDS: CEFUROXIME AXETIL 250 MG TAB PO SCH (09:05)
[2017-12-27] MEDS: SPIRONOLACTONE 25 MG TAB PO SCH (09:05)
[2017-12-27] MEDS: ATORVASTATIN 40 MG TAB PO SCH (09:05)
[2017-12-27] MEDS: ASPIRIN 325 MG ENTERIC COATED PO SCH (09:05)
[2017-12-27] MEDS: CITALOPRAM HYDROBROM 20 MG TAB PO SCH (09:05)
[2017-12-27] MEDS: METOPROLOL SUCC XL 25 MG TABCR PO SCH (09:05)
[2017-12-28 08:00] VITALS: BP 146/69
[2017-12-28] MEDS: ATORVASTATIN 40 MG TAB PO SCH (08:51)
[2017-12-28] MEDS: METOPROLOL SUCC XL 25 MG TABCR PO SCH (08:51)
[2017-12-28] MEDS: POTASSIUM CHL 10 MEQ TABCR PO SCH (08:51)
[2017-12-28] MEDS: DOCUSATE SODIUM 100 MG CAP PO SCH ×2 (08:51→21:02)
[2017-12-28] MEDS: SPIRONOLACTONE 25 MG TAB PO SCH (08:51)
[2017-12-28] MEDS: CITALOPRAM HYDROBROM 20 MG TAB PO SCH (08:51)
[2017-12-28] MEDS: ASPIRIN 325 MG ENTERIC COATED PO SCH (08:52)
[2017-12-28] MEDS: POLYETHYLENE GLYCOL 17 GM PKT PO SCH (08:52)
--- NOTE | 2017-12-28 09:33 | PT ECF NOTE ---
Type of Note: Progress Note Primary Medical Diagnosis: L) hip fracture, s/p gamma nail *WBAT* Physical Therapy Progress Note Date: 12/25/17 SUBJECTIVE: Prior Hospitalization: H 12/08/17-12/11/17 Prior Level of Function: Reg with occasional use of SPC Prior Living Status: Multilevel house, Alone Community Services: Support adequate, [facility] services 2x/week Home Accessibility: 3 stairs with rails, 2 stairs to enter via garage Equipment Owned: Rollator, Cane -- pt's family plans to install stair lift in home Medical Complications/Past Medical History: See EMR Psychosocial Support: Supportive children, no children live in [place] Pain Scale (0-10): Pt reports "soreness" of L) LE OBJECTIVE: Strength: Right Lower Extremity: DF: 4/5 Knee flexion: 4/5 Knee extension: 3+/5 Hip flexion: 3+/5 Left Lower Extremity: DF: 4/5 Knee flexion: 3/5 Knee extension: 3+/5 Hip flexion: 3+/5 ROM: L) LE AROM and PROM has improved since admission Sensation: (please note any abnormalities) No abnormalities noted Other Neuro findings: Pt with h/o CVA affecting L) side, pt reports the R) LE is "weaker" at baseline though Bed Mobility: SBA from both sides of bed Transfers: SBA with RW Gait: SBA x300' with RW Stairs: 3x4 stairs with railing and SBA Timed Up and Go (>12 seconds indicated increased risk for falls):NT ASSESSMENT: Sayra has made functional gains with all areas of mobility and is consistently completing bed mobility, transfers and ambulation with use of RW and SBA. She has recently made progress with stair negotiation and is demonstrating overall improved LE strength and improved ability to weightbear through her surgical limb. She may benefit from a transition to use of 4WW, and will benefit from further stair training to progress to Reg with stair negotiation prior to d/c home. Family is involved in making appropriate home modifications, PT goals have been updated. Problem List/Current Limitations: Pain Decreased activity loren Decreased strength Decreased ROM Decreased balance Short Term Goals: 1: Pt to complete bed mobility with Reg 2: Pt to complete transfers with Reg 3: Pt to ambulate 400' with Reg and least restrictive AD 4: Pt to asc/desc 2x4 stairs with Reg Belt Maker Helper Goals: Pt to d/c home with a decreased risk of falls Patient Goals: "Walk again" Rehabilitation Prognosis: Good Barriers for Discharge: High level of functional independence required to d/ c home. PLAN: The patient will benefit from skilled physical therapy services 5 times per week for 2 weeks including: Therapeutic Exercise Therapeutic Activities Transfer Training Gait Training Stair Training Manual Therapy Safety Training Neuromuscular Re-educ. Pt/Caregiver Training Bed Mobility Thank you for this referral. If you have any questions, concerns, or comments about this report or plan, please contact me at . Ana Bhandari, PT, DPT [facility]
--- NOTE | 2017-12-28 11:20 | OT ECF NOTE ---
Type of Note: 2-week progress note Primary Medical Diagnosis: Generalized Weakness s/p left hip ORIF Occupational Therapy Evaluation Date: 12/11/17 SUBJECTIVE: Prior Hospitalization: H 12/08/17 thru 12/11/17 Prior Level of Function: Independent with ADLs. Assist from [facility] 2x/ week for IADLs. Prior Living Status: Single level house, Alone Community Services: No known needs Home Accessibility: Stairs with rails, Tub/shower combination Equipment Owned: Front wheeled walker Rollator Cane Shower chair Medical Complications/Past Medical History: HTN, Hyperlipidemia, Depression, Hx of stroke, Hx of right wrist fx Psychosocial Support: Pt has children that reside out of state Pain Scale (0-10): 5/10 in left lower extremity with ambulation, aching in neck OBJECTIVE: Strength: MMT: Right Left Shoulder Flexion 4/5 4/5 Elbow Flexion 4/5 4/5 Wrist Extension 4/5 4/5 Manager [employer] 4/5 4/5 (5= normal, 4= good, 3= fair, 2= poor, 1= trace) ROM: Both upper extremities, Minimally limited Functional Transfer: Assistive Device: Front wheeled walker, Gait belt Transfer Ability: SBA with occasional loss of balance ADL: Upper body dressing: Assistive device: None Upper body dressing ability: Set-up Lower body dressing: Assistive device: Stool Lower body dressing ability: Occasional Min A. Pt progressing toward (I) with donning denys hose Toileting: Assistive device: Raised toilet seat Toileting ability: SBA Grooming/hygiene: Assistive device: Standing Grooming ability: SBA Bathing: Assistive device: Shower chair Bathing ability: Min A Standardized Assessment: Liliana Index of Activities of Daily Livin/20 at initial evaluation (). 1420 at 2 week progress note (12/28/17) ASSESSMENT: Sayra presents to [facility] with decreased independence for engagement in ADLs/IADLs s/p left hip ORIF. At [facility], she was (I) with ADLs and had occasional assist from [facility] for IADLs. Currently, she requires SBA for ambulation and Min A for ADLs. A home evaluation will be completed this week to provide appropriate home recommendations and promote a safe discharge home. She is progressing towards OT goals and will continue to benefit from skilled OT services to optimize (I) with ADLs and improve activity tolerance for IADLs prior to discharge home where she resides alone. Problem List/Current Limitations: Pain Decreased activity tolerance Generalized weakness Short Term Goals: 1) Pt will be Mod (I) UB/LB dressing. Progressing towards. 2) Pt will be Mod (I) toilet task. Progressing towards. 3) Pt will be Mod (I) shower task. Progressing towards. 4) Pt will be (I) grooming/hygiene. Progressing towards. 5) Pt Liliana Index of ADLs score will increase by 2 points. Progressing towards. Roving Inspector Goals: Return home with services Patient Goals: "I'm going to walk again" Rehabilitation Prognosis: Good Barriers to Discharge: Pain, Return to high PLOF for discharge home alone, Home set-up PLAN: The patient will benefit from skilled occupational therapy services 5 times per week for 2 weeks including: Ther ex ADL training Safety training Ther act IADL training Transfer training Adaptive equip training Bed mobility Energy conservation Thank you for this referral. If you have any questions, concerns, or comments about this report or plan, please contact me at . Delmy Olvera MS, OTR/L Occupational Therapist J CARLOS
--- NOTE | 2017-12-28 12:06 | ECF H&P BLANK ---
[facility] H&P UPDATE History of Present Illness History of Present Illness 87yo female with h/o CVA who came to the ER after a fall. She was in her normal state of health this evening. She was climbing stairs to go to a democrat and stepped wrong. She fell on her left side. She denies any cp/sob/vertigo/ palpitations/LOC before the fall. She had a stroke about a year ago and has some residual left UE and LE weakness. She denies CAD/COPD/asthma/CHF/DVT/PE. She has never had problems with anesthesia. She is able to climb a flight of stairs without stopping and exercises multiple times a week. She denies LE edema, orthopnea, cp with activity, or sob. History Problems: (1) History of CVA (cerebrovascular accident) Status: Chronic (2) History of hypertension Status: Chronic (3) OAB (overactive bladder) Status: Chronic (4) Hypertension Status: Chronic (5) Depression Status: Chronic (6) History of hysterectomy Status: Chronic (7) History of partial colectomy Status: Chronic (8) History of appendectomy Status: Chronic Home Meds Active Scripts Lisinopril (LISINOPRIL) 20 Mg Tablet, 20 MG PO QDAY, #30 TAB Prov:TONY BHANDARI DO 09/08/17 Lidocaine (Lidocaine) 5 % Adh..patch, 1 EACH TP QDAY, #30 PATCH Prov:ELISABETTONY WILDER DO 09/08/17 Oxybutynin Chloride (OXYBUTYNIN CHLORIDE) 5 Mg Tablet, 1 TAB PO QHS, #90 TAB 3 Refills Prov:AL PAYAN APRNP-C 06/27/15 Citalopram Hydrobromide (CITALOPRAM HBR) 20 Mg Tablet, 1 TAB PO QDAY, #90 TAB 3 Refills Prov:AL PAYAN APRNP-C 06/27/15 Reported Medications Potassium Chloride (POTASSIUM CHLORIDE) 10 Meq Capsule.er, 10 MEQ PO 09/08/17 Atorvastatin Calcium (LIPITOR) 40 Mg Tablet, 1 TAB PO QDAY, TAB 09/08/17 Metoprolol Succinate (METOPROLOL SUCCINATE) 25 Mg Tab.er.24h, 1 TAB PO QDAY, TAB 09/08/17 Aspirin (ASPIR 81) 81 Mg Tablet.dr, 81 MG PO QDAY, TAB 09/08/17 Allergies: Coded Allergies: zolpidem (Verified Allergy, Unknown, 12/08/17) Patient History: Diabetes mellitus (DM) FH: breast cancer CHILD (Breast Cancer) CHILD (Breast Cancer) FHx: heart disease FHx: hypertension Hx Smoking: No Smoking Status: Never Smoker Exposure to Second Hand Smoke?: No Caffeine Intake: Tea Hx Alcohol Use: No Hx Substance Use Disorder: No Review of Systems All Systems Reviewed/Normal: Yes, Except as Noted Exam Vital Signs Vital Signs Date Time Temp Pulse Resp B/P (MAP) Pulse Ox O2 Delivery O2 Flow Rate FiO2 12/08/17 20:21 2.0 12/08/17 19:53 89 97 12/08/17 19:30 187/84 (118) 12/08/17 18:31 98.7 18 Nasal Cannula General Appearance: Alert, Awake, No Acute Distress Neuro: No Gross deficits Eyes: PERRLA ENT: Moist Mucous Membranes Cardiovascular: Regular Rate and Rhythm, No JVD Respiratory: Clear to Auscultation GI: Abd Soft and Non-Tender Extremities: No Edema Integumentary: No Jaundice, No Cyanosis Medical Decision Making Data Points Result Diagram: 12/08/17190112/08/171901 EKG / Imaging EKG Interpretation Vent. Rate : 063 BPM Atrial Rate : 063 BPM P-R Int : 164 ms QRS Dur : 072 ms QT Int : 410 ms P-R-T Axes : 061 020 042 degrees QTc Int : 419 ms Normal sinus rhythm with sinus arrhythmia Moderate voltage criteria for LVH, may be normal variant No ST-T abnormalities When compared with ECG of 07-SEP-2017 11:42, Vent. rate has decreased BY 49 BPM T wave inversion no longer evident in Anterior leads Confirmed by NELSON PRETTY ([id number]) on 12/08/2017 8:00:[address] - 1. Left femur intertrochanteric/subtrochanteric comminuted and impacted fracture. 2. Questionable small bowel edema in the visualized left lower abdomen and pelvis. Correlation with any evidence of an enteritis is recommended. 3. Atherosclerosis. 4. Sigmoidectomy. CXR - No evidence of acute cardiopulmonary abnormality. Hip Xray - Proximal femur fracture which may extend cranially to involve the base of the femoral neck. If there is need for further evaluation of the fracture, cross-sectional imaging may be considered. Assessment and Plan Problems: (1) Pre-op evaluation Status: Acute Assessment & Plan: The patient has a low to moderate risk for cardiac complications related to surgery because of age, HTN, and a CVA 12 months ago. However, she has no worrisome symptoms and had a normal myocardial perfusion scan 1.5 months ago. There is no further testing to be done. She has a low risk for pulmonary complications. She had a moderate to high risk for delirium after surgery because of her age and previous CVA. She has a low to moderate risk for bleeding secondary to ASA use. (2) Closed left hip fracture Status: Acute Assessment & Plan: It was secondary to a fall without any worrisome symptoms causing the event. Dr. Curry is following. (3) Anemia Status: Chronic Assessment & Plan: She has had a normocytic anemia for a couple of years. She was transfused 1 unit of PRBC on 12/02 for what appears to be a Hgb of 9.8. Hgb is 12 today. She is chronically on ASA, but no reported symptoms concerning for occult bleeding. Will follow. (4) Skin tear of left elbow without complication Status: Acute Assessment & Plan: Left elbow has a significant hematoma and is wrapped. Apparently, she has a skin tear under the dressing. Will follow. (5) History of CVA (cerebrovascular accident) Status: Chronic Assessment & Plan: Chronically on ASA, and Lipitor, which will be held before surgery. (6) Hypertension Status: Chronic Assessment & Plan: She is chronically on Toprol. She reports SBP in the 150- 180 at home. Will give labetalol prn before surgery. (7) Depression Status: Chronic Assessment & Plan: Chronically on citalopram which will be held for now. (8) OAB (overactive bladder) Status: Chronic Assessment & Plan: She is chronically on oxybutynin, which will be held for now. Copies to: KARENA CURRY MD; CORTNEY VAZQUEZ Venous Thromboembolism Antithrombotics Is Pt On Any Antithrombotics?: No Exam Sepsis Risk: No Definite Risk Problem Qualifiers (1) Closed left hip fracture: Encounter type: initial encounter Qualified Codes: S72.002A - Fracture of unspecified part of neck of left femur, initial encounter for closed fracture (2) Skin tear of left elbow without complication: Encounter type: initial encounter Qualified Codes: S51.012A - Laceration without foreign body of left elbow, initial encounter NELSON PRETTY MD Dec 08, 2017 23:33 <Electronically signed by NELSON PRETTY MD> D/ 32 32 32 PETELARS/LP CC: KARENA CURRY MD; CORTNEY VAZQUEZ The above acute care issues are resolving and/or stable. Patient requires fpc and/or skilled rehabilitation and is ready for admission to Extended Care. Any change in condition is described below. TONY BHANDARI DO Dec 28, 2017 12:06
[2017-12-28 15:25] VITALS: BP 131/84
[2017-12-29 09:21] VITALS: BP 144/76
[2017-12-29] MEDS: POTASSIUM CHL 10 MEQ TABCR PO SCH (09:22)
[2017-12-29] MEDS: POLYETHYLENE GLYCOL 17 GM PKT PO SCH (09:22)
[2017-12-29] MEDS: DOCUSATE SODIUM 100 MG CAP PO SCH ×2 (09:23→20:15)
[2017-12-29] MEDS: ATORVASTATIN 40 MG TAB PO SCH (09:23)
[2017-12-29] MEDS: ASPIRIN 325 MG ENTERIC COATED PO SCH (09:23)
[2017-12-29] MEDS: METOPROLOL SUCC XL 25 MG TABCR PO SCH (09:23)
[2017-12-29] MEDS: SPIRONOLACTONE 25 MG TAB PO SCH (09:23)
[2017-12-29] MEDS: CITALOPRAM HYDROBROM 20 MG TAB PO SCH (09:23)
[2017-12-29 10:04] VITALS: Ht 152.4 cm; Wt 37.6 kg
--- NOTE | 2017-12-29 10:13 | Medical Nutrition Therapy ---
Nutrition Anthropometrics Height (Inches): 60.00 Height (Calculated Centimeters: 152.376101 Weight (Pounds): 82 Weight (Calculated Kilograms): 37.591 BMI Calculated: 16.01 Braxton Nutrition Score: Probably Inadequate Braxton Nutrition Risk Score: 17 Dietary Referral Nutrition Risk Factors: Unplanned Loss >10lbs, Diff. Swallowing Nutrition Risk Comment: Physical Findings Physical Appearance: Underweight BMI<19 Skin Appearance Skin Appearance: Edema Edema Location Modifier: Left Edema Location: Ankle Type of Edema: Degree of Edema: 1+ Gastrointestinal Symptoms GI Symtoms: Nausea Tube Present: Bowel Sounds: Recent Bowel Pattern: Constipated Stool Characteristics: Nutritional Diagnosis Nutritional Risk Acuity 3: OR & > 80 yrs, Fx & > 80 yrs Past Medical History: depression, CVA, HTN, anemia, OAB, hip fracture Nutritional Acuity: 3-Mild Energy Requirement: 1021 Protein Requirement: 42 Fluid Requirement: 1050 Diet Type: Regular Nutrition Intervention: Cont diet as ordered, Encourage intake, Between meal supplement Food Likes: please mix butter and sour cream in with baked potato Food Dislikes: no crumb catcher please, just a napkin Optional Order Time?: No Additional Diet Restrictions: OFFER NUTR SUPPLMENT AND ENCOURAGE HIGH KCAL/ HIGH PROTEIN Diet Comment To RSA: Protein powder in appropriate foods please. Snacks: peanut butter crackers Nutrition Monitoring & Eval Nutrition Goals: Eat 75-100% Meal Nutrition Follow-Up: Good Intake, Fair Intake RD Patient Assessment Time: [address] Assessment Type: RD Re-Assessment Patient Nutrition Acuity: 3-Mild Follow Up Date: Jan 05, 2018 Nutritional Comment: 12/11)Pt. admitted post hip sx. Labs 12/11) Na 132, Alb 3.1 Weight from the med floor on 12/08) 42.8 kg. Regular diet, po intake 75% x 1 meal. No preference when meals are delivered. Monitor labs, weight, po intake 12/14) Pt. complains of slight cough. Fever today. Regular diet. po intake 50%, 100% past 2 meals. Labs 12/13) Na 130, Ca 8.2. Will monitor labs, po intake, weight. 12/22) Po intake ranging from 50%-70%. Labs: 12/19) BUN 19, Na 132. Weight: 12/18) 42 kg which is stable. Will continue to monitor labs, po intake, weight. 3/6 Pt cont on regular diet. Intake averaged 75% past 3 days. Wt is down 15% in 2 weeks. However wt loss is anticiated because pt is on a duirectic. If wt loss was food intake based, that would indicate a kcal deficit of 3280 kcl/day- physically impossible. BMI is in underwt range. Will add nutr supplment along with protein powder and encourage high kcal high protein intake. Will cont to monitor. SYDNEE GARCIA Dec 29, 2017 10:13
[2017-12-29] MEDS: PROMETHAZINE HCL 25 MG TAB PO PRN ×2 (10:18→20:19)
[2017-12-29 15:20] VITALS: BP 140/79
[2017-12-30 08:01] VITALS: BP 110/66
[2017-12-30 09:04] VITALS: BP 137/74
[2017-12-30] MEDS: POLYETHYLENE GLYCOL 17 GM PKT PO SCH (09:05)
[2017-12-30] MEDS: METOPROLOL SUCC XL 25 MG TABCR PO SCH (09:06)
[2017-12-30] MEDS: SPIRONOLACTONE 25 MG TAB PO SCH (09:06)
[2017-12-30] MEDS: DOCUSATE SODIUM 100 MG CAP PO SCH ×2 (09:06→20:40)
[2017-12-30] MEDS: CITALOPRAM HYDROBROM 20 MG TAB PO SCH (09:06)
[2017-12-30] MEDS: POTASSIUM CHL 10 MEQ TABCR PO SCH (09:06)
[2017-12-30] MEDS: ASPIRIN 325 MG ENTERIC COATED PO SCH (09:06)
[2017-12-30] MEDS: ATORVASTATIN 40 MG TAB PO SCH (09:06)
--- NOTE | 2017-12-30 12:49 | Hospitalist Progress Note ---
Subjective Progress Notes Subjective No new complaints. Physical Exam Vital Signs Date Time Temp Pulse Resp B/P (MAP) Pulse Ox O2 Delivery O2 Flow Rate FiO2 12/30/17 09:04 78 137/74 (95) 12/30/17 08:01 97.2 16 94 Room Air 12/30/17 03:07 1.0 Intake and Output 12/31/17 07:00 Intake Total 360 ml Balance 360 ml Intake Oral 360 ml General Appearance: Alert, Awake, No Acute Distress, Afebrile Assessment and Plan Problems: (1) Pneumonia Status: Acute Assessment & Plan: The patient developed increased O2 requirements and fever. CXR showed LLL infiltrate. She was treated with Ceftin and doxycycline. She completed her course of antibiotics and is now afebrile and asymptomatic. (2) Leg swelling Status: Acute Assessment & Plan: Venous doppler was negative. Her spironolactone was restarted. Will continue Fortunato dockery spironolactone 12.5mg daily. (3) Closed left hip fracture Status: Acute Assessment & Plan: Repaired. Transferred to [facility] for ongoing rehabilitation. On ASA for DVT prophylaxis. (4) Hypertension Status: Chronic Assessment & Plan: Continue metoprolol. (5) Depression Status: Chronic Assessment & Plan: Continue citalopram. (6) Stroke Status: Chronic Assessment & Plan: Continue ASA daily. (7) Hyperlipemia Status: Chronic Assessment & Plan: Continue atorvastatin. Time Spent on Plan of Care: < 30 min GATO PETTY MD Dec 30, 2017 12:49
[2017-12-30] MEDS ORDERED: POLY17PO21 PO (12:54)
[2017-12-30] MEDS ORDERED: ASPI-764 PO (12:54)
[2017-12-30] MEDS ORDERED: DOCU-202 PO (12:54)
[2017-12-30] MEDS ORDERED: MOM PO (12:54)
--- NOTE | 2017-12-30 12:59 | Hospitalist Depart ---
Discharge Summary Reason for Hosp/Final Diag: (1) Pneumonia Status: Acute Hospital Course & Plan: The patient developed increased O2 requirements and fever while on ECF. CXR showed LLL infiltrate. She was treated with Ceftin and doxycycline. She completed her course of antibiotics and remained afebrile and asymptomatic. (2) Leg swelling Status: Acute Hospital Course & Plan: Venous doppler was negative. Her spironolactone was restarted and she was continued on Fortunato hose as well. (3) Closed left hip fracture Status: Acute Hospital Course & Plan: Repaired. She inpatient admission records for details. Transferred to [facility] for ongoing rehabilitation and progressed. On ASA 325mg daily for DVT prophylaxis. (4) Hypertension Status: Chronic Hospital Course & Plan: Lisinopril was discontinued and metoprolol was continued. Blood pressures were controlled. (5) Depression Status: Chronic Hospital Course & Plan: She was continued on citalopram. (6) Stroke Status: Chronic Hospital Course & Plan: She was placed on ASA 325mg post operatively for DVT prophylaxis and will decrease to 81mg daily after January 11. (7) Hyperlipemia Status: Chronic Hospital Course & Plan: She was continued on atorvastatin. Departure Weight (Pounds): 82 Weight (Ounces): 14.0 Condition: Improved Discharge: Assisted Living PT/OT Follow Up For: PT For Surgical Rehab, OT For ADL's Home Health LINE DECORATOR Follow Up For: ADL Assistance Time Spent: < 30 min Discharge Instructions Home Meds Active Scripts Lisinopril (LISINOPRIL) 20 Mg Tablet, 20 MG PO QDAY, #30 TAB Prov:TONY BHANDARI DO 09/08/17 Oxybutynin Chloride (OXYBUTYNIN CHLORIDE) 5 Mg Tablet, 1 TAB PO QHS, #90 TAB 3 Refills Prov:AL PAYAN APRN CANDY BAR ATTENDANT-C 06/27/15 Citalopram Hydrobromide (CITALOPRAM HBR) 20 Mg Tablet, 1 TAB PO QDAY, #90 TAB 3 Refills Prov:AL PAYAN APRN CANDY BAR ATTENDANT-C 06/27/15 Reported Medications Acetaminophen (TYLENOL) 325 Mg Tablet, 1000 MG PO DAILY, TAB 12/11/17 Spironolactone (SPIRONOLACTONE) 25 Mg Tablet, 12.5 MG PO DAILY, TAB 12/11/17 Oxycodone Hcl/Acetaminophen (PERCOCET 5-325 MG TABLET) 1 Each Tablet, 1-2 EACH PO Q4-6H Y for PAIN, TAB 12/09/17 Potassium Chloride (POTASSIUM CHLORIDE) 10 Meq Capsule.er, 10 MEQ PO 09/08/17 Atorvastatin Calcium (LIPITOR) 40 Mg Tablet, 1 TAB PO QDAY, TAB 09/08/17 Metoprolol Succinate (METOPROLOL SUCCINATE) 25 Mg Tab.er.24h, 1 TAB PO QDAY, TAB 09/08/17 Aspirin (ASPIR 81) 81 Mg Tablet.dr, 81 MG PO QDAY, TAB 09/08/17 Follow up Referrals: Internal Medicine - In Two Weeks with ASHLEY Gallardo Diet: Regular Activity: As Tolerated Special Instructions: After patient completes 30 days of ASA 325mg daily for DVT prophylaxis post hip repair, she should go back to ASA 81mg daily for continued stroke prevention. Copies to: CORTNEY VAZQUEZ Venous Thromboembolism VTE Risk Physician Assess for VTE Risk: Yes Patient's VTE Risk: Low VTE Diagnostic Test 2 Days Prior to Admit: No Antithrombotics Is Pt On Any Antithrombotics?: Yes (ASA 325mg for DVT prophylaxis s/p hip repair.) [id number] Certification Face to Face Home Health Certification Institutional Provider conducted the [id number] encounter. Electronic Undersigning Physician Certifies Home Health. I certify that the patient has been under my care and that I had a [id number] encounter that meets the physician [id number] encounter requirements with this patient. This patient is home-bound due to safety issues and continues to require assistance with ADL's. I certify that based on my findings, that Nursing, Aides and the following Home Health services are medically necessary: PT/OT Medical Necessity: Nursing, Rehab Date Face to Face Conducted: Dec 30, 2017 Problem Qualifiers (1) Closed left hip fracture: Fracture healing: with delayed healing GATO PETTY MD Dec 30, 2017 12:59
[2017-12-30 16:10] VITALS: BP 122/62
[2017-12-31 08:30] VITALS: BP 156/77
[2017-12-31 09:20] VITALS: BP 124/70
[2017-12-31] MEDS: METOPROLOL SUCC XL 25 MG TABCR PO SCH (09:36)
[2017-12-31] MEDS: POTASSIUM CHL 10 MEQ TABCR PO SCH (09:37)
[2017-12-31] MEDS: CITALOPRAM HYDROBROM 20 MG TAB PO SCH (09:37)
[2017-12-31] MEDS: SPIRONOLACTONE 25 MG TAB PO SCH (09:37)
[2017-12-31] MEDS: ASPIRIN 325 MG ENTERIC COATED PO SCH (09:37)
[2017-12-31] MEDS: POLYETHYLENE GLYCOL 17 GM PKT PO SCH (09:37)
[2017-12-31] MEDS: DOCUSATE SODIUM 100 MG CAP PO SCH ×2 (09:37→20:24)
[2017-12-31] MEDS: ATORVASTATIN 40 MG TAB PO SCH (09:37)
--- NOTE | 2017-12-31 12:50 | OT ECF NOTE ---
Type of Note: Discharge Note Primary Medical Diagnosis: Generalized Weakness s/p left hip ORIF Occupational Therapy Evaluation Date: 12/11/17 SUBJECTIVE: Prior Hospitalization: [facility] 12/08/17 thru 12/11/17 Prior Level of Function: Independent with ADLs. Assist from [facility] 2x/ week for IADLs. Prior Living Status: Single level house, Alone Community Services: No known needs Home Accessibility: Stairs with rails, Tub/shower combination Equipment Owned: Front wheeled walker Rollator Cane Shower chair Home evaluation completed and equipment recommendations provided. Pt's daughter will arrive in [facility] and initiate completing recommendations Medical Complications/Past Medical History: HTN, Hyperlipidemia, Depression, Hx of stroke, Hx of right wrist fx Psychosocial Support: Pt has children that reside out of state Pain Scale (0-10): 5/10 in left lower extremity with ambulation, aching in neck OBJECTIVE: Strength: MMT: Right Left Shoulder Flexion 4/5 4/5 Elbow Flexion 4/5 4/5 Wrist Extension 4/5 4/5 Banquet Supervisor 4/5 4/5 (5= normal, 4= good, 3= fair, 2= poor, 1= trace) ROM: Both upper extremities, Minimally limited Functional Transfer: Assistive Device: 4WW Transfer Ability: Modified Independent ADL: Upper body dressing: Assistive device: None Upper body dressing ability: Independent Lower body dressing: Assistive device: Stool or completed supine in bed Lower body dressing ability: Modified Independent Toileting: Assistive device: None Toileting ability: Independent Grooming/hygiene: Assistive device: Standing Grooming ability: Independent Bathing: Assistive device: Extended tub transfer bench Bathing ability: Modified Independent Standardized Assessment: Liliana Index of Activities of Daily Livin20 at initial evaluation (). 14/20 at 2 week progress note (12/28/17). 20 at discharge date (12/31/17) . ASSESSMENT: Sayra presented to [facility] with decreased independence for engagement in ADLs/IADLs s/p left hip ORIF. At [facility], she was (I) with ADLs and had occasional assist from [facility] for IADLs. She has met all skilled OT goals and presents with no further questions/concerns for OT at time of discharge. Problem List/Current Limitations: Pain Decreased activity tolerance Generalized weakness Short Term Goals: 1) Pt will be Mod (I) UB/LB dressing. Goal Met. 2) Pt will be Mod (I) toilet task. Goal Met. 3) Pt will be Mod (I) shower task. Goal Met. 4) Pt will be (I) grooming/hygiene. Goal Met. 5) Pt Liliana Index of ADLs score will increase by 2 points. Goal Met. Intraoperative Neuro Tech Goals: Return home with HH services Patient Goals: "I'm going to walk again" Rehabilitation Prognosis: Good Barriers to Discharge: Pain, Return to high PLOF for discharge home alone, Home set-up PLAN: The patient will transfer to [facility] for a 1-2 weeks. Her daughter will arrive mid-December and initiate home modifications prior to pt returning home with assist from daughter. Pt will continue with services upon discharge from [facility]. Thank you for this referral. If you have any questions, concerns, or comments about this report or plan, please contact me at . Delmy Olvera MS, OTR/L Occupational Therapist J CARLOS
[2017-12-31 16:45] VITALS: BP 137/89
[2018-01-01 08:30] VITALS: BP 121/78
[2018-01-01] MEDS: CITALOPRAM HYDROBROM 20 MG TAB PO SCH (08:58)
[2018-01-01] MEDS: POTASSIUM CHL 10 MEQ TABCR PO SCH (08:58)
[2018-01-01] MEDS: DOCUSATE SODIUM 100 MG CAP PO SCH (08:58)
[2018-01-01] MEDS: METOPROLOL SUCC XL 25 MG TABCR PO SCH (08:58)
[2018-01-01] MEDS: ASPIRIN 325 MG ENTERIC COATED PO SCH (08:59)
[2018-01-01] MEDS: ATORVASTATIN 40 MG TAB PO SCH (08:59)
[2018-01-01] MEDS: SPIRONOLACTONE 25 MG TAB PO SCH (08:59)
[2018-01-01] MEDS: POLYETHYLENE GLYCOL 17 GM PKT PO SCH (08:59)
--- NOTE | 2018-01-01 11:01 | PT ECF NOTE ---
Type of Note: Discharge Summary Primary Medical Diagnosis: L) hip fracture, s/p gamma nail *WBAT* Physical Therapy Discharge Date: 01/01/18 SUBJECTIVE: [facility] Prior Level of Function: Reg with occasional use of SPC Prior Living Status: Multilevel house, Alone Community Services: Support adequate, [facility] services 2x/week Home Accessibility: 3 stairs with rails, 2 stairs to enter via garage Equipment Owned: Rollator, Cane -- pt's family plans to install stair lift in home Medical Complications/Past Medical History: See EMR Psychosocial Support: Supportive children, no children live in [place] Pain Scale (0-10): No pain at time of d/c OBJECTIVE: Strength: Right Lower Extremity: DF: 4/5 Knee flexion: 4/5 Knee extension: 3+/5 Hip flexion: 3+/5 Left Lower Extremity: DF: 4/5 Knee flexion: 4/5 Knee extension: 3+/5 Hip flexion: 3+/5 ROM: L) LE AROM and PROM has improved since admission Sensation: (please note any abnormalities) No abnormalities noted Other Neuro findings: Pt with h/o CVA affecting L) side, pt reports the R) LE is "weaker" at baseline though Bed Mobility: Reg Transfers: Reg with 4WW Gait: Reg with 4WW x650' Stairs: 3x4 stairs with railing and Reg Timed Up and Go (>12 seconds indicated increased risk for falls):22 seconds ASSESSMENT: The patient has met all PT goals and demonstrates increased independence and safety with all functional mobility. She is Reg with use of 4WW for all functional mobility. She has consistently demonstrated the ability to asc/desc stairs with use of R) railing only. She will discharge to [facility] x1 week until her daughter arrives into town to assist with transition home. Problem List/Current Limitations: Decreased activity loren Decreased strength Decreased ROM Decreased balance Short Term Goals: (goals met) 1: Pt to complete bed mobility with Reg 2: Pt to complete transfers with Reg 3: Pt to ambulate 400' with Reg and least restrictive AD 4: Pt to asc/desc 2x4 stairs with Reg Long-Term Goals: Pt to d/c home with a decreased risk of falls - met Patient Goals: "Walk again" - met PLAN: The patient will discharge to [facility] with [facility] services x1 week until the pt's daughter is in town to assist with transition home. Thank you for this referral. If you have any questions, concerns, or comments about this report or plan, please contact me at . Ana Bhandari, PT, DPT [facility]
== END 2018-01-01 09:55 | disposition home or self-care (01) | DRG 559 ==
LOC: SWB 10:25
PROVIDERS: ADMIT Family Medicine; ATTEND Family Medicine
DX: S72.142G Displaced intertrochanteric fracture of left femur, subsequent encounter for closed fracture with delayed healing (principal); J18.9 Pneumonia, unspecified organism; I69.354 Hemiplegia and hemiparesis following cerebral infarction affecting left non-dominant side; I10 Essential (primary) hypertension; F32.9 Major depressive disorder, single episode, unspecified; E78.5 Hyperlipidemia, unspecified; N32.81 Overactive bladder; D64.9 Anemia, unspecified; S51.012D Laceration without foreign body of left elbow, subsequent encounter; R22.42 Localized swelling, mass and lump, left lower limb; W10.8XXD Fall (on) (from) other stairs and steps, subsequent encounter; Y99.8 Other external cause status; Y92.008 Other place in unspecified non-institutional (private) residence as the place of occurrence of the external cause; Z90.710 Acquired absence of both cervix and uterus; Z88.8 Allergy status to other drugs, medicaments and biological substances
CPT/HCPCS: 36415; 71045; 82310; 82374; 82435; 82565; 82947; 84132; 84295; 84520; 85025; 97161; 97165; Q0169

== ENCOUNTER → 2018-01-29 | Outpatient (CLI) | payer MEDICARE ==
[2017-12-29 10:04] VITALS: BMI 16.0
[~2018-01-29] MED LIST changes: +ACET-1966 PO; +ASPI-764 PO; +DOCU-202 PO; +MOM PO; +POLY17PO21 PO
[2018-01-29 11:16] LABS: PLATELET COUNT, AUTOMATED 269 K/uL (150-450)
== END ==
LOC: LAB 10:34
PROVIDERS: ATTEND Nurse Practitioner Family
DX: D50.9 Iron deficiency anemia, unspecified (principal); M62.81 Muscle weakness (generalized); D51.0 Vitamin B12 deficiency anemia due to intrinsic factor deficiency; R27.8 Other lack of coordination; R29.6 Repeated falls; M84.359D Stress fracture, hip, unspecified, subsequent encounter for fracture with routine healing
CPT/HCPCS: 36415; 82040; 82247; 82310; 82374; 82435; 82565; 82728; 82947; 84075; 84132; 84155; 84295; 84450; 84460; 84520; 85025

== ENCOUNTER 2018-02-22 09:17 | Emergency (ER) | payer MEDICARE ==
[2017-12-29 10:04] VITALS: Wt 45.4 kg
[2018-02-22] MEDS ORDERED: LISI20TA29 PO (09:34)
--- NOTE | 2018-02-22 09:44 | ER Report ---
History and Physical Time Seen By MD: 09:28 Hx. of Stated Complaint: PATIENT HAS CHRONIC RIGHT HIP PAIN. SHE NORMALLY SEES DR CURRY FOR THIS BUT HE IS OUT OF TOWN. HPI/ROS CHIEF COMPLAINT: Hip pain HISTORY OF PRESENT ILLNESS: This is an 87 year old female. She had a fall with left hip fracture in November and subsequent left hip repair by Dr. Curry. She has had chronic achy pain in the right hip area. Mainly posterior right hip and in the low back. Some pain down the right leg as well. Seems to have worsened over the weekend. She was going to see Dr Curry, but he was not available today. Pain seems a little worse with walking, but it hurts with sitting and lying down as well. Has not slept well the last 3 days. Taking more Tylenol, but not helping. Left hip feels great. Sometimes she says the right leg will give way, but no weakness. No loss of control of bowel or bladder function. She will get some tingling in the right leg at times. Allergies: Coded Allergies: zolpidem (Verified Allergy, Unknown, 12/08/17) Home Meds Active Scripts Hydrocodone Bit/Acetaminophen (HYDROCODON-ACETAMINOPHEN 5-325) 1 Each Tablet, 1 EACH PO Q4H Y for PAIN, #12 TAB 0 Refills Prov:MARY BARGER MD 02/22/18 Polyethylene Glycol 3350 (POLYETHYLENE GLYCOL 3350) 17 Gm Powd.pack, 17 GM PO QDAY, #30 UNITS Prov:GATO PETTY MD 12/30/17 Magnesium Hydroxide (MILK OF MAGNESIA) 400 Mg/5 Ml Oral.susp, 30 ML PO QDAY Y for CONSTIPATION, #1 BOTTLE Prov:GATO PETTY MD 12/30/17 Docusate Sodium (DOCUSATE SODIUM) 100 Mg Capsule, 100 MG PO BID, #60 CAPSULE Prov:GATO PETTY MD 12/30/17 Aspirin (ASPIRIN EC) 325 Mg Tablet., 325 MG PO QDAY for 12 Days, #12 TAB Once you are done with ASA 325mg daily (on 01/11), go back to ASA 81mg daily. Prov:GATO PETTY MD 12/30/17 Citalopram Hydrobromide (CITALOPRAM HBR) 20 Mg Tablet, 1 TAB PO QDAY, #90 TAB 3 Refills Prov:AL PAYAN APRN NETWORK DEVELOPER-C 06/27/15 Reported Medications Lisinopril (LISINOPRIL) 20 Mg Tablet, 20 MG PO QDAY, TAB 02/22/18 Acetaminophen (TYLENOL) 325 Mg Tablet, 1000 MG PO DAILY, TAB 12/11/17 Spironolactone (SPIRONOLACTONE) 25 Mg Tablet, 12.5 MG PO DAILY, TAB 12/11/17 Oxycodone Hcl/Acetaminophen (PERCOCET 5-325 MG TABLET) 1 Each Tablet, 1-2 EACH PO Q4-6H Y for PAIN, TAB 12/09/17 Potassium Chloride (POTASSIUM CHLORIDE) 10 Meq Capsule.er, 10 MEQ PO 09/08/17 Atorvastatin Calcium (LIPITOR) 40 Mg Tablet, 1 TAB PO QDAY, TAB 09/08/17 Metoprolol Succinate (METOPROLOL SUCCINATE) 25 Mg Tab.er.24h, 1 TAB PO QDAY, TAB 09/08/17 Aspirin (ASPIR 81) 81 Mg Tablet.dr, 81 MG PO QDAY, TAB 09/08/17 Reviewed Nurses Notes: Yes Hx Smoking: No Smoking Status: Never Smoker Exposure to Second Hand Smoke?: No Hx Substance Use Disorder: No Hx Alcohol Use: No Constitutional Vital Sign - Last 24 Hours 02/22/18 02/22/18 02/22/18 02/22/18 09:22 09:26 09:27 09:47 Temp 97.3 Pulse 93 88 Resp 20 B/P (MAP) 198/102 (134) 198/102 177/111 (133) Pulse Ox 92 94 O2 Delivery Room Air 02/22/18 02/22/18 02/22/18 02/22/18 10:13 10:17 10:47 10:52 Pulse 90 90 90 B/P (MAP) 169/137 (148) Pulse Ox 96 96 02/22/18 02/22/18 02/22/18 11:22 11:52 12:14 Pulse 87 74 92 Resp 18 B/P (MAP) 171/112 (131) Pulse Ox 94 95 96 O2 Delivery Room Air Physical Exam General Appearance: The patient is alert, has no immediate need for airway protection and no current signs of toxicity. Respiratory: Breathing easily, without distress. Cardiac: regular rate and rhythm. Normal pulses in lower extremities. Gastrointestinal: Abdomen is soft and non tender. Musculoskeletal: She has some pain with palpation of the lower lumbar area into the sacrum and coccyx. The most pain with palpation was over the SI joint on the right. No pain anterior and lateral right hip. Some pain in the thigh and calf, but no swelling associated. Normal strength with movement of hip, knee, and foot/ankle. Skin: No rashes or lesions. DIFFERENTIAL DIAGNOSIS: After history and physical exam differential diagnosis was considered for hip and low back pain, seems more likely to be sciatica. Pain has been present since her fall, so cannot exclude occult injury after reviewing the imaging that was done at that time. Medical Decision Making EKG/Imaging Imaging EXAMINATION: CT lumbar spine without IV contrast HISTORY: Right hip and low back pain. COMPARISON: CT of the lumbar spine from 09/02/2017. TECHNIQUE: Axial images were obtained through the lumbar spine without IV contrast administration. Coronal and sagittal reformatted images were obtained from the axial source data. One of the following dose optimization techniques was utilized in the performance of this exam: Automated exposure control; adjustment of the mA and/ or kV according to the patient's size; or use of an iterative reconstruction technique. Specific details can be referenced in the facility's radiology CT exam operational policy. FINDINGS: Alignment: Grade 1 retrolisthesis at L1-2 and grade 1 anterolisthesis at L4-5, unchanged. Vertebral bodies: Bony structures are mildly osteopenic. There are chronic compression fractures at T12 and L1 with up to 20% height loss at T12, similar to previous exam. There is a compression fracture at T11 which is new from previous CT. There is a fracture line paralleling the superior endplate without extension into the pedicles. The T11 vertebra is moderately sclerotic. There is 40% height loss anteriorly, without retropulsed bony fragments. Posterior elements: There is multilevel facet hypertrophy. Hardware: None. Disc spaces: Mild degenerative bony spurring at a few levels and moderate disc space narrowing with endplate sclerosis and bony spurring at L5-S1. Soft tissues: Negative. Visualized retroperitoneal/abdominal structures: Extensive atherosclerotic calcifications. Moderate size sliding hiatal hernia. IMPRESSION: 1. Compression fracture of T11 is new from previous CT, but is likely subacute , rather than acute. Patchy sclerosis in the T11 vertebra is likely a healing response to the fracture. 40% height loss anteriorly. 2. Mild chronic compression fractures at T12 and L1, unchanged. 3. Multilevel degenerative disc disease and facet arthropathy is unchanged. 4. Grade 1 degenerative retrolisthesis at L1-2 and anterolisthesis at L4-5, unchanged. Report Dictated By: Kimberly Sorensen MD at 02/22/2018 10:52 AM EXAMINATION: CT pelvis without IV contrast HISTORY: Right hip and low back pain. COMPARISON: CT abdomen and pelvis from 09/02/[address] right hip from 2017. TECHNIQUE: Spiral scan was obtained through the pelvis without intravenous contrast. Sagittal and coronal reformatted images are also submitted. One of the following dose optimization techniques was utilized in the performance of this exam: Automated exposure control; adjustment of the mA and/ or kV according to the patient's size; or use of an iterative reconstruction technique. Specific details can be referenced in the facility's radiology CT exam operational policy. FINDINGS: Pelvic structures: Previous hysterectomy. Bowel: Suture line in the sigmoid colon. Moderate stool in the visualized colon. Peritoneum/retroperitoneum/mesenteries: Negative. Vessels: Extensive atherosclerotic calcifications. Musculoskeletal/body wall: Bony structures are mildly osteopenic. There is no acute fracture or dislocation. Previous left femoral neck fracture fixation. Visualized hardware is intact without evidence of complication. 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 Mild joint space narrowing and bony spurring of the pubic symphysis. There are degenerative changes of the visualized lower lumbar spine. Lymph nodes: Negative. IMPRESSION: 1. No acute fracture of the pelvis. 2. Previous ORIF of a left femoral neck fracture without evidence of hardware complication. Report Dictated By: Kimberly Sorensen MD at 02/22/2018 11:17 AM HIP RIGHT W/O CONTRAST COMPARISON: None. HISTORY: right hip and low back pain. TECHNIQUE: Noncontrast axial CT of the right hip with coronal and sagittal reformats. One of the following dose optimization techniques was utilized in the performance of this exam: automated exposure control; adjustment of the mA and/ or kV according to patient size; or use of iterative reconstruction technique. Specific details can be referenced in the facility's radiology CT exam operational policy. CONTRAST: None. FINDINGS: BONES : No acute fracture or bone lesion in the right hip or visualized right hemipelvis. Small degenerative cysts in the right acetabulum anteriorly, no other significant right hip joint degenerative changes. There is mild degenerative sclerosis and hypertrophy at the pubic symphysis. Visualized right SI joint is unremarkable. FLUID: No appreciable effusion or drainable fluid collection. SOFT TISSUES: Moderate diffuse vascular calcifications. There is mild fatty atrophy of the right radius minimus muscle which may be related to remote partial thickness tendon tear. No soft tissue mass or hematoma. OTHER: Rectal anastomosis sutures. 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 No acute fractures. The lower lumbar spine was imaged separately and will be reported separately.. Report Dictated By: Akash Bryan at 02/22/2018 10:55 AM ED Course/Re-evaluation ED Course Imaging as noted above was negative for acute injury. The patient was aware of the subacute T11 compression. Appears that this pain is most likely sciatica. Discussed conservative management and follow-up with Dr. Baird as planned. Decision to Disposition Date: Feb 22, 2018 Decision to Disposition Time: 12:03 Depart Departure Latest Vital Signs Vital Signs Date Time Temp Pulse Resp B/P (MAP) Pulse Ox O2 Delivery O2 Flow Rate FiO2 02/22/18 12:14 92 18 171/112 (131) 96 Room Air 02/22/18 09:26 97.3 Impression: Primary Impression: Sciatica Condition: Improved Disposition: HOME OR SELF-CARE Referrals: CORTNEY VAZQUEZ NETWORK DEVELOPER (PCP) New Scripts Hydrocodone Bit/Acetaminophen (HYDROCODON-ACETAMINOPHEN 5-325) 1 Each Tablet 1 EACH PO Q4H Y for PAIN, #12 TAB 0 Refills Prov: MARY BARGER MD 02/22/18 Patient Instructions: Sciatica (ED) Additional Instructions: Keep taking Tylenol for the pain. If you need something stronger, you can take Lortab 5/325 instead of the Tylenol. You can take a 1/2 tablet or full tablet and can do this every 4 hours as needed for pain. Please follow-up with your orthopedic surgeon. Call and make an appointment with your physical therapist so they can start working with you to relieve the pain as well. Problem Qualifiers Primary Impression: Sciatica Laterality: right Qualified Codes: M54.31 - Sciatica, right side MARY BARGER MD Feb 22, 2018 09:44
--- NOTE | 2018-02-22 11:03 | RADIOLOGY IMAGING REPORT ---
FACILITY: [facility] - [place] PATIENT NAME: Sayra Hayward : 1930 MR: [id number] V: [id number] EXAM DATE: ORDERING PHYSICIAN: MARY BARGER TECHNOLOGIST: Location: [facility] Patient: Sayra Hayward : 1930 Visit/Account:[id number] Date of Sevice: 02/22/2018 EXAMINATION: CT lumbar spine without IV contrast HISTORY: Right hip and low back pain. COMPARISON: CT of the lumbar spine from 09/02/2017. TECHNIQUE: Axial images were obtained through the lumbar spine without IV contrast administration. C oronal and sagittal reformatted images were obtained from the axial source data. One of the following dose optimization techniques was utilized in the performance of this exam: Autom ated exposure control; adjustment of the mA and/or kV according to the patient's size; or use of an i terative reconstruction technique. Specific details can be referenced in the facility's radiology C T exam operational policy. FINDINGS: Alignment: Grade 1 retrolisthesis at L1-2 and grade 1 anterolisthesis at L4-5, unchanged. Vertebral bodies: Bony structures are mildly osteopenic. There are chronic compression fractures at T12 and L1 with up to 20% height loss at T12, similar to previous exam. There is a compression fract ure at T11 which is new from previous CT. There is a fracture line paralleling the superior endplate without extension into the pedicles. The T11 vertebra is moderately sclerotic. There is 40% height loss anteriorly, without retropulsed bony fragments. Posterior elements: There is multilevel facet hypertrophy. Hardware: None. Disc spaces: Mild degenerative bony spurring at a few levels and moderate disc space narrowing with e ndplate sclerosis and bony spurring at L5-S1. Soft tissues: Negative. Visualized retroperitoneal/abdominal structures: Extensive atherosclerotic calcifications. Moderate size sliding hiatal hernia. IMPRESSION: 1. Compression fracture of T11 is new from previous CT, but is likely subacute, rather than acute. Patchy sclerosis in the T11 vertebra is likely a healing response to the fracture. 40% height loss a nteriorly. 2. Mild chronic compression fractures at T12 and L1, unchanged. 3. Multilevel degenerative disc disease and facet arthropathy is unchanged. 4. Grade 1 degenerative retrolisthesis at L1-2 and anterolisthesis at L4-5, unchanged. Report Dictated By: Kimberly Sorensen MD at 02/22/2018 10:52 AM Report E-Signed By: Kimberly Sorensen MD at 02/22/2018 10:58 AM WSN:[id number]
[2018-02-22] MEDS ORDERED: ACETAMINOPHEN 500 MG TAB PO ONE (11:05)
--- NOTE | 2018-02-22 11:09 | RADIOLOGY IMAGING REPORT ---
[facility] PATIENT NAME: Sayra Hayward : 1930 MR: [id number] V: [id number] EXAM DATE: ORDERING PHYSICIAN: MARY BARGER TECHNOLOGIST: Location: [facility] - [place], [place] Patient: Sayra Hayward : 1930 Visit/Account:[id number] Date of Sevice: 02/22/2018 HIP RIGHT W/O CONTRAST COMPARISON: None. HISTORY: right hip and low back pain. TECHNIQUE: Noncontrast axial CT of the right hip with coronal and sagittal reformats. One of the following dose optimization techniques was utilized in the performance of this exam: auto mated exposure control; adjustment of the mA and/or kV according to patient size; or use of iterative reconstruction technique. Specific details can be referenced in the facility's radiology CT exam op erational policy. CONTRAST: None. FINDINGS: BONES : No acute fracture or bone lesion in the right hip or visualized right hemipelvis. Small dege nerative cysts in the right acetabulum anteriorly, no other significant right hip joint degenerative changes. There is mild degenerative sclerosis and hypertrophy at the pubic symphysis. Visualized righ t SI joint is unremarkable. FLUID: No appreciable effusion or drainable fluid collection. SOFT TISSUES: Moderate diffuse vascular calcifications. There is mild fatty atrophy of the right rad ius minimus muscle which may be related to remote partial thickness tendon tear. No soft tissue mass or hematoma. OTHER: Rectal anastomosis sutures. 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 No acute fractures. The lower lumbar spine was imaged separately and will be reported separately.. Report Dictated By: Akash Bryan at 02/22/2018 10:55 AM Report E-Signed By: Akash Bryan at 02/22/2018 11:06 AM WSN:[id number]
--- NOTE | 2018-02-22 11:26 | RADIOLOGY IMAGING REPORT ---
FACILITY: [facility] - [place] PATIENT NAME: Sayra Hayward : 1930 MR: [id number] V: [id number] EXAM DATE: ORDERING PHYSICIAN: MARY BAREGR TECHNOLOGIST: Location: Patient: Sayra Hayward : 1930 Visit/Account:[id number] Date of Sevice: 02/22/2018 EXAMINATION: CT pelvis without IV contrast HISTORY: Right hip and low back pain. COMPARISON: CT abdomen and pelvis from 09/02/[address] right hip from 02/22/2018. TECHNIQUE: Spiral scan was obtained through the pelvis without intravenous contrast. Sagittal and coronal reformatted images are also submitted. One of the following dose optimization techniques was utilized in the performance of this exam: Autom ated exposure control; adjustment of the mA and/or kV according to the patient's size; or use of an i terative reconstruction technique. Specific details can be referenced in the facility's radiology C T exam operational policy. FINDINGS: Pelvic structures: Previous hysterectomy. Bowel: Suture line in the sigmoid colon. Moderate stool in the visualized colon. Peritoneum/retroperitoneum/mesenteries: Negative. Vessels: Extensive atherosclerotic calcifications. Musculoskeletal/body wall: Bony structures are mildly osteopenic. There is no acute fracture or disl ocation. Previous left femoral neck fracture fixation. Visualized hardware is intact without eviden ce of complication. 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 Mild joint space narrowin g and bony spurring of the pubic symphysis. There are degenerative changes of the visualized lower l umbar spine. Lymph nodes: Negative. IMPRESSION: 1. No acute fracture of the pelvis. 2. Previous ORIF of a left femoral neck fracture without evidence of hardware complication. Report Dictated By: Kimberly Sorensen MD at 02/22/2018 11:17 AM Report E-Signed By: Kimberly Sorensen MD at 02/22/2018 11:20 AM WSN:[id number]
[2018-02-22] MEDS ORDERED: LOR5/325 PO (12:07)
[2018-02-22 12:14] VITALS: BP 171/112
== END 2018-02-22 12:17 | disposition home or self-care (01) ==
LOC: ER 09:18
DX: M54.31 Sciatica, right side (principal)
CPT/HCPCS: 72131; 72192; 73700; 99283; A9270

== ENCOUNTER → 2018-05-12 | Outpatient (CLI) | payer MEDICARE ==
[2017-12-29 10:04] VITALS: BMI 16.0
[~2018-05-12] MED LIST changes: -CITA-139 PO; +CITA-145 PO; -SPIR25TA78 PO; +SPIR25TA80 PO; -TOLT2CAP; +TOLT2CAP22; -TRAZ-156 PO; -TRAZ-163 PO; +TRAZ100T31 PO; +TRAZ50TA34 PO
== END ==
LOC: LAB 11:24
PROVIDERS: ATTEND Nurse Practitioner Family
DX: I63.50 Cerebral infarction due to unspecified occlusion or stenosis of unspecified cerebral artery (principal); D50.9 Iron deficiency anemia, unspecified; M62.81 Muscle weakness (generalized); D51.0 Vitamin B12 deficiency anemia due to intrinsic factor deficiency; M81.0 Age-related osteoporosis without current pathological fracture; E55.9 Vitamin D deficiency, unspecified
CPT/HCPCS: 36415; 82040; 82247; 82306; 82310; 82374; 82435; 82565; 82607; 82728; 82947; 84075; 84132; 84155; 84295; 84450; 84460; 84520; 85027

== ENCOUNTER 2018-05-26 10:30 | Outpatient (RCR) | payer MEDICARE ==
[2017-12-29 10:04] VITALS: BMI 16.0
--- NOTE | 2018-04-21 16:45 | PT INITIAL EVALUATION ---
MEDICAL DIAGNOSIS: I63.50, R29.810, M54.30, S22.081D TREATMENT DIAGNOSIS: Same DATE OF ONSET: 02/22/18 SUBJECTIVE: Sayra Hayward presents to physical therapy with complaints of low back pain with radiating pain down her B LE's that occurred on the January with no apparent reason. She reports that over the last few weeks the pain is getting better in her low back; however, continues to stay about the same down her B LE's to her B knees. She reports that she would like to be able to walk, improve sciatic nerve issue, and improve her low back pain. She rates her low back pain with radiating pain to be tolerable around 5-6/10. Pain location is T11-L5 and described as achy, numbness. Pain scale is 4 on a ten point pain scale. REHAB PROBLEM LIST: Increased Pain Decreased ROM Decreased Strength Decreased Endurance Decreased Balance Decreased Function Decreased ADL's Decreased Mobility Decreased Gait PREVIOUS MEDICAL HISTORY: See EMR OCCUPATION: Retired OBJECTIVE: Posture: She demonstrated forward head, B rounded shoulders, increased thoracic kyphosis, and decreased lumbar lordosis. ROM: Trunk AROM: flexion: NIL with muscular end feel. Extension: Severe restriction with painful end feel. R side gliding: moderate restriction with painful end feel. L side gliding: minimal restriction with painful end feel. Strength: B hip flexion, extension, adduction, abduction, B knee extension and flexion, and B ankle DF and PF: 4/5. Palpation: TTP: central spinous process of T11-L5 along with radiating pain down anterior, lateral, and posterior thighs down to B knees. Sensation: Decreased B L5-S1 otherwise intact Special Tests: Repeated extension in lying and in standing: pain during the test with abolished B LE pain along with centralized low back pain. Repeated flexion in lying: stretch during the test and worse following the test. Mobility: Modified independent Gait: She demonstrated the following gait mechanics without AD: decreased velocity, increased base of support, increased weaving to the R and L, forward trunk lean, decreased B step lengths, decreased B feet clearance, and decreased pelvic rotation. Balance: 4 stage balance: firm surface: tandem stance: unable to get to test position without B UE support, with B UE support, she was able to get to test position to hold for approximately 3-4 seconds. normal base of support, eyes opened: 45 seconds. decreased base of support with eyes opened: 30 seconds. compliant surface: normal base of support with eyes opened: 30 seconds. decreased base of support with eyes opened: 15 seconds. Did not test with eyes closed; however, I believe that she would struggle tremendously. Other Objective Findings: SPO2%: 90% without O2. BP: 162/86 mmHg. ASSESSMENT: Sayra will benefit from skilled physical therapy addressing the listed impairments to improve function and QOL. Based on examination, it appears that her provisional classification is posterior derangement that centralized her pain with extension based principles. She is independent on her specific technique. Short Term Goals 2 weeks: Pt will demonstrate centralized low back pain to improve function and QOL. 4 weeks: Pt will demonstrate abolished low back pain to improve function and QOL. 6 weeks: Pt will demonstrate significant improvements with balance strategies in all conditions from baseline to greater than 45 seconds to improve function and QOL. 8 weeks: Pt will demonstrate improvements with gait mechanics, which will return to prior level of function. Patient's Goals walk like she should without falls, find an effective exercise for her sciatica PLAN: Patient to be seen for Manual Therapy/STM/MET Strengthening/condition Range of Motion Spinal Stabilization Work Hardening/Cond Stretching Neuromuscular Re-ed Closed Chain Program Posture/Body mechanics Gait Trg/Balance Trg Home Exercise Program Therapeutic Activities 2-3x/week for 2 Months If you have any questions, comments, or concerns about this report or plan, please contact me at . Thank you, Pee Rockwell, PT, DPT MTDD
--- NOTE | 2018-05-26 18:14 | PT PLAN OF CARE ---
Physician: ASHLEY Gallardo Patient is being seen: 2x/week Therapist: Pee Rockwell, PT, DPT Medical Diagnosis: I63.50, R29.810, M54.30, S22.081D Treatment Diagnosis: Same Date of Onset: 02/22/18 Date of Initial Evaluation: 04/21/18 Date patient was last seen: 05/26/18 Number of treatments: 10 Number of cancellations/No shows: 0 INTERVENTIONS: Manual Therapy/STM/MET Strengthening/condition Range of Motion Spinal Stabilization Work Hardening/Cond Stretching Neuromuscular Re-ed Closed Chain Program Posture/Body mechanics Gait Trg/Balance Trg Home Exercise Program Therapeutic Activities GOALS: 2 weeks: Pt will demonstrate centralized low back pain to improve function and QOL. MET 4 weeks: Pt will demonstrate abolished low back pain to improve function and QOL. MET 6 weeks: Pt will demonstrate significant improvements with balance strategies in all conditions from baseline to greater than 45 seconds to improve function and QOL. MET 8 weeks: Pt will demonstrate improvements with gait mechanics, which will return to prior level of function. Progressed well PATIENT'S GOAL: walk like she should without falls, find an effective exercise for her sciatica : MET Status of Patient's Goals: Progressed well Patient Compliance: Good Prognosis: Good Reasons for continuing therapy: This is a discharge note for Sayra Hayward. She reports that she is doing well. She reports that her back pain has fully resolved. She reports that she has been doing her specific exercise twice a day with positive results. She reports that she has been moving and lifting boxes without any increase in low back pain. She reports that she is currently having most difficulty with balance and gait. She reports that she feels like it is coming together and is working with her home exercise program at home. Furthermore, she reports that she would like to continue with her home exercise program at home along with going to the senior center. She demonstrated significant improvements in abolished low back pain with return to full trunk AROM in all directions with normal end feels. Furthermore, she demonstrated significant improvements in static balance strategies in all conditions; however , she continues to increased sway with dynamic balance. She is independent with her home exercise program. As a result, she will be discharged from PT to [facility]. Posture: She demonstrated forward head, B rounded shoulders, increased thoracic kyphosis, and decreased lumbar lordosis. ROM: Trunk AROM: flexion: NIL with muscular end feel. Extension: NIL with normal end feel. R side gliding: NIL with normal end feel. L side gliding: NIL with normal end feel Strength: B hip flexion, extension, adduction, abduction, B knee extension and flexion, and B ankle DF and PF: 4/5. Mobility: independent If you have any questions, please contact me at [phone]. Thank you, Pee Rockwell, PT, DPT MTDD
== END 2018-05-26 18:00 | disposition home or self-care (01) ==
LOC: PT 10:30
PROVIDERS: ATTEND Nurse Practitioner Family
DX: I69.80 Unspecified sequelae of other cerebrovascular disease (principal); R29.810 Facial weakness; M54.30 Sciatica, unspecified side; S22.081D Stable burst fracture of T11-T12 vertebra, subsequent encounter for fracture with routine healing; X58.XXXD Exposure to other specified factors, subsequent encounter
CPT/HCPCS: 97161

== ENCOUNTER → 2018-06-10 | Outpatient (CLI) | payer MEDICARE ==
[2017-12-29 10:04] VITALS: BMI 16.0
[~2018-06-10] MED LIST changes: +OXYC-373 PO
--- NOTE | 2018-06-11 15:49 | RADIOLOGY IMAGING REPORT ---
FACILITY: [facility] PATIENT NAME: KESHAV ALFONSO : [id number] MR: [id number] V: [id number] EXAM DATE: [id number] ORDERING PHYSICIAN: TONY DOS SANTOS TECHNOLOGIST: Aysha Reddy PROCEDURE:BILATERAL DIAGNOSTIC DIGITAL MAMMOGRAM COMPARISON:Prior mammogram dated 11/21/15 INDICATIONS:RT BREAST PAIN UPPER OUTER QUADRANT FINDINGS: A small amount of fibroglandular tissue is seen throughout the breasts. The parenchymal pattern has remained stable allowing for difference in mammographic technique & patient positioning. There is no evidence of malignant appearing mass, malignant appearing calcification or other secondary sign of malignancy in either breast. Today's Right breast Ultrasound also revealed no sonographic correlate for patient's Right breast pain. Therefore clinical follow up recommended. DIAGNOSTIC CATEGORY 2--BENIGN FINDING. RECOMMENDATIONS: ROUTINE MAMMOGRAM AND CLINICAL EVALUATION. CLINICAL EVALUATION. IMPRESSION: BIRADS 2: Benign finding. No significant abnormality identified, therefore clinical follow up recommended for patient's Right breast pain. Dictated by: Dinora Sweet M.D. on 06/10/2018 at 17:08 Transcribed by: PARAS on 06/11/2018 at 9:34 Approved by: Dinora Sweet M.D. on 06/11/2018 at 15:47 [facility]
== END ==
LOC: MAMO 00:21
PROVIDERS: ATTEND Surgery
DX: N64.4 Mastodynia (principal)
CPT/HCPCS: 77062; 77066

== ENCOUNTER 2018-07-16 10:23 | Emergency (ER) | payer MEDICARE ==
[2017-12-29 10:04] VITALS: BMI 16.0
[2018-07-16] MEDS ORDERED: TRANEXAMIC AC 1000 MG/10ML SDV 1,000 MG in NS(*) 0.9% 50 ML BAG 50 ML IVPB ONE (10:45)
[2018-07-16] MEDS ORDERED: TRANEXAMIC AC 1000 MG/10ML SDV ONE (10:50)
--- NOTE | 2018-07-16 11:45 | ER Report ---
History and Physical Time Seen By MD: 10:30 Hx. of Stated Complaint: NOSEBLEED THAT STARTED ABOUT 0500 THIS MORNING HPI/ROS CHIEF COMPLAINT: epistaxis HISTORY OF PRESENT ILLNESS: Patient with history of occasional episodes of epistaxis presents with bleeding out of left there since zero 500 this morning. Patient has had continuous dripping and cannot quantify the amount of blood loss. Patient is on aspirin and has history of CVA denies other blood thinners. Patient denies chest pain, shortness of breath, headache, nausea, vomiting. Patient does not have known bleeding disorder. REVIEW OF SYSTEMS: Constitutional: No fever, no chills. Eyes: No discharge. ENT: No sore throat. Cardiovascular: No chest pain, no palpitations. Respiratory: No cough, no shortness of breath. Gastrointestinal: No abdominal pain, no vomiting. Genitourinary: no urinary sympotms Musculoskeletal: No back pain. Skin: No rashes. Neurological: No headache. Remainder of the 14 system rev: Yes Allergies: Coded Allergies: zolpidem (Verified Allergy, Unknown, 12/08/17) Home Meds Active Scripts Magnesium Hydroxide (MILK OF MAGNESIA) 400 Mg/5 Ml Oral.susp, 30 ML PO QDAY PRN for CONSTIPATION, #1 BOTTLE Prov:GATO PETTY MD 12/30/17 Docusate Sodium (DOCUSATE SODIUM) 100 Mg Capsule, 100 MG PO BID, #60 CAPSULE Prov:GATO PETTY MD 12/30/17 Citalopram Hydrobromide (CITALOPRAM HBR) 20 Mg Tablet, 1 TAB PO QDAY, #90 TAB 3 Refills Prov:AL PAYAN APRN FINANCIAL COACH-C 06/27/15 Reported Medications Oxycodone Hcl/Acetaminophen (OXYCODONE-ACETAMINOPHEN 5-325) 1 Each Tablet, 1 EACH PO PRN, TAB 06/01/18 Acetaminophen (TYLENOL) 325 Mg Tablet, 1000 MG PO DAILY, TAB 12/11/17 Atorvastatin Calcium (LIPITOR) 40 Mg Tablet, 1 TAB PO QDAY, TAB 09/08/17 Metoprolol Succinate (METOPROLOL SUCCINATE) 25 Mg Tab.er.24h, 1 TAB PO QDAY, TAB 09/08/17 Aspirin (ASPIR 81) 81 Mg Tablet.dr, 81 MG PO QDAY, TAB 09/08/17 Reviewed Nurses Notes: Yes Hx Smoking: No Smoking Status: Never Smoker Exposure to Second Hand Smoke?: No Hx Substance Use Disorder: No Hx Alcohol Use: No Constitutional Vital Sign - Last 24 Hours 07/16/18 07/16/18 07/16/18 07/16/18 10:23 10:26 10:26 10:30 Temp 98.3 Pulse ??? 91 Resp 20 B/P (MAP) 175/114 (134) 175/114 182/114 (136) Pulse Ox 96 O2 Delivery Room Air 07/16/18 07/16/18 07/16/18 11:00 11:30 12:00 B/P (MAP) 180/134 (149) 157/99 (118) 116/89 (98) Physical Exam General Appearance: [The patient is alert, has no immediate need for airway protection and no signs of toxicity.] [ ] Eyes: Pupils equal and round no pallor or injection. ENT, Mouth: Mucous membranes are moist. oozing from left nare. dried blood noted in mouth Respiratory: There are no retractions, lungs are clear to auscultation. Cardiovascular: Regular rate and rhythm. Gastrointestinal: Abdomen is soft and non tender, no masses, bowel sounds normal. Neurological: alert, oriented, nad Skin: Warm and dry, no rashes. Musculoskeletal: Neck is supple non tender. Extremities are nontender, nonswollen and have full range of motion. DIFFERENTIAL DIAGNOSIS: After history and physical exam differential diagnosis was considered for epistaxis, acute blood loss, hypertensive emergency, polyp or cuase of emergent bleeding. Medical Decision Making ED Course/Re-evaluation ED Course Patient required aggressive control of epistaxis in the emergency department. After consideration of risks and benefits and evaluation of blood pressure, I elected to start with tranexamic acid for bleeding control. Unfortunately despite atomized and gauze soaked tranexamic acid, patient had continued bleeding. There is no evidence that this was a posterior or arterial bleed, so I discussed risks and benefits of anterior packing. Patient agreed with need to pack. Paking placed without complications. Bleeding controlled in emergency department; I dc'd pt with ENT f/u and SRP's. Procedure epistaxis - brisk bleed noted; not responsive to txa; left sided rhino rocket placed (medium) with good response. Bleeding ultimately controlled Decision to Disposition Date: Jul 16, 2018 Decision to Disposition Time: 12:10 Depart Departure Latest Vital Signs Vital Signs Date Time Temp Pulse Resp B/P (MAP) Pulse Ox O2 Delivery O2 Flow Rate FiO2 07/16/18 12:00 116/89 (98) 07/16/18 10:26 98.3 91 20 96 Room Air Impression: Primary Impression: Epistaxis Condition: Improved Disposition: HOME OR SELF-CARE Referrals: CORTNEY VAZQUEZ (PCP) JUWAN ALCOCER JR, MD 2 Days Patient Instructions: Nosebleed (ED) Additional Instructions: follow up in three days with ENT (Dr. Alcocer's office) for removal of packing and reassessment. Return immediately for uncontrolled bleeding, worsening symptoms or any concerns. ARCHIE WATSON MD Jul 16, 2018 11:44
[2018-07-16 12:00] VITALS: BP 116/89
== END 2018-07-16 12:09 | disposition home or self-care (01) ==
LOC: ER 10:31
DX: R04.0 Epistaxis (principal)
CPT/HCPCS: 99282

== ENCOUNTER → 2019-01-07 | Outpatient (CLI) | payer MEDICARE ==
[2017-12-29 10:04] VITALS: BMI 16.0
[~2019-01-07] MED LIST changes: +POLY17PO11 PO; -POLY17PO21 PO
[2019-01-07 15:12] LABS: PLATELET COUNT, AUTOMATED 321 K/uL (150-450)
[2019-01-07 15:18] LABS: LDL CHOLESTEROL 63 mg/dl
== END ==
LOC: LAB 14:20
PROVIDERS: ATTEND Nurse Practitioner Family
DX: R53.81 Other malaise (principal); D50.9 Iron deficiency anemia, unspecified; E87.8 Other disorders of electrolyte and fluid balance, not elsewhere classified; E78.00 Pure hypercholesterolemia, unspecified; E53.8 Deficiency of other specified B group vitamins; E55.9 Vitamin D deficiency, unspecified
CPT/HCPCS: 36415; 82040; 82247; 82306; 82310; 82374; 82435; 82465; 82565; 82607; 82728; 82947; 83718; 84075; 84132; 84155; 84295; 84443; 84450; 84460; 84478; 84520; 85025

== ENCOUNTER 2019-03-05 10:48 | Emergency (ER) | payer MEDICARE ==
[2017-12-29 10:04] VITALS: Wt 39.9 kg
--- NOTE | 2019-03-05 11:05 | ER Report ---
History and Physical Time Seen By MD: 11:05 Hx. of Stated Complaint: pt tripped and fell last night hitting face on curb and scraping her r thompson HPI/ROS CHIEF COMPLAINT: Fall, facial abrasions, swelling to the lip and abrasion to thompson HISTORY OF PRESENT ILLNESS: 88-year-old female patient presents to the emergency room with complaint of a fall. Patient states that she was walking last night, tripped and fell forward hitting her face on a curb, scraping her thompson. Patient states that she has pain to her thompson. She denies any loss of consciousness, nausea, vomiting or diarrhea. Patient states that she does have frequent falls. She states that she does have canes and walker which she prefers not to use. She denies any nausea, vomiting. Patient states she has no neck pain. Patient states that she was having some pain to the right lower leg earlier today and that is what prompted her to come in. She did want to have the abrasion on her lower leg cleaned and a dressing placed. REVIEW OF SYSTEMS: Respiratory: No cough, no dyspnea. Cardiovascular: No chest pain, no palpitations. Gastrointestinal: No vomiting, no abdominal pain. Musculoskeletal: As noted above Allergies: Coded Allergies: zolpidem (Verified Allergy, Unknown, 03/05/19) Home Meds Active Scripts Magnesium Hydroxide (MILK OF MAGNESIA) 400 Mg/5 Ml Oral.susp, 30 ML PO QDAY PRN for CONSTIPATION, #1 BOTTLE Prov:GATO PETTY MD 12/30/17 Docusate Sodium (DOCUSATE SODIUM) 100 Mg Capsule, 100 MG PO BID, #60 CAPSULE Prov:GATO PETTY MD 12/30/17 Citalopram Hydrobromide (CITALOPRAM HBR) 20 Mg Tablet, 1 TAB PO QDAY, #90 TAB 3 Refills Prov:AL PAYAN APRN VICE PRESIDENT OF TALENT MANAGEMENT-C 06/27/15 Reported Medications Oxycodone Hcl/Acetaminophen (OXYCODONE-ACETAMINOPHEN 5-325) 1 Each Tablet, 1 EACH PO PRN, TAB 06/01/18 Acetaminophen (TYLENOL) 325 Mg Tablet, 1000 MG PO DAILY, TAB 12/11/17 Atorvastatin Calcium (LIPITOR) 40 Mg Tablet, 1 TAB PO QDAY, TAB 09/08/17 Metoprolol Succinate (METOPROLOL SUCCINATE) 25 Mg Tab.er.24h, 1 TAB PO QDAY, TAB 09/08/17 Aspirin (ASPIR 81) 81 Mg Tablet.dr, 81 MG PO QDAY, TAB 09/08/17 Past Medical/Surgical History Patient has a past medical history of hypertension, hyperlipidemia, tuberculosis, frequent UTI, fractures, depression. 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 Reviewed Nurses Notes: Yes Hx Smoking: No Smoking Status: Never Smoker Exposure to Second Hand Smoke?: No Hx Substance Use Disorder: No Hx Alcohol Use: No Constitutional Vital Sign - Last 24 Hours 03/05/19 03/05/19 03/05/19 03/05/19 10:54 11:00 11:18 11:30 Temp 97.9 Pulse 92 67 Resp 20 B/P (MAP) 145/83 143/96 (112) 154/104 (121) Pulse Ox 92 92 03/05/19 03/05/19 03/05/19 03/05/19 11:48 11:53 11:58 12:30 Pulse 68 80 B/P (MAP) 145/95 (112) 140/104 (116) Pulse Ox 94 94 03/05/19 03/05/19 03/05/19 12:33 13:00 13:03 Pulse 89 91 B/P (MAP) 145/86 (105) Pulse Ox 94 87 Physical Exam General Appearance: The patient is alert, has no immediate need for airway protection and no current signs of toxicity. Respiratory: Chest is non tender, lungs are clear to auscultation. Cardiac: regular rate and rhythm Gastrointestinal: Abdomen is soft and non tender, no masses, bowel sounds normal. Musculoskeletal: Neck: Neck is supple and non tender. Extremities have full range of motion and are non tender. Skin: No rashes or lesions. Patient does have a skin tear on the right lower leg, abrasion and swelling to her upper lip. DIFFERENTIAL DIAGNOSIS: After history and physical exam differential diagnosis was considered for head injury including but not limited to concussion, skull fracture, intraparenchymal contusion, subarachnoid, subdural and epidural hematoma. Medical Decision Making EKG/Imaging Imaging EXAMINATION: CT Cervical spine without intravenous contrast HISTORY: Fall COMPARISON: August 16, 2012 TECHNIQUE: Axial images were obtained from the skull base through the upper thoracic spine without IV contrast administration. Coronal and sagittal reformatted images were generated from the axial source data. One of the following dose optimization techniques was utilized in the performance of this exam: automated exposure control; adjustment of the mA and/or kV according to patient size; or use of iterative reconstruction technique. Specific details can be referenced in the facility's radiology CT exam operational policy. FINDINGS: Vertebral bodies and posterior elements: Normal vertebral body heights. No fracture identified. New widening of the left C3-4 facet joint space is favored to be degenerative. Alignment: Mild convexity left scoliosis may be positional. Disc Spaces: Moderate C4-5 disc space degeneration has progressed. Multilevel degenerative foraminal narrowing. Soft tissues: Normal. Visualized upper chest: Nodular right apical pleural-parenchymal scarring was not imaged on prior to evaluate for interval change. IMPRESSION: 1. No fracture identified. 2. Mild widening of the left C3-4 facet joint space is new compared to prior and favored to be degenerative or positional. Acute traumatic widening is felt less likely. Correlate with site of pain. MR of the cervical spine could be utilized for further characterization if there is high clinical concern for an acute traumatic injury at this level. Report Dictated By: Jonh Ace MD at 03/05/2019 12:39 PM Report E-Signed By: Jonh Ace MD at 03/05/2019 12:46 PM EXAMINATION: CT facial bones without IV contrast HISTORY: Fall COMPARISON: None. TECHNIQUE: Axial images were obtained through the facial bones. Coronal and sagittal reformatted images were generated from the source data. No IV contrast was administered. One of the following dose optimization techniques was utilized in the performa nce of this exam: automated exposure control; adjustment of the mA and/or kV according to patient size; or use of iterative reconstruction technique. Specific details can be referenced in the facility's radiology CT exam operational policy. FINDINGS: Mastoid air cells and sinuses: Clear. Osseous structures including mandible and orbital mendes: Chronic mild rightward nasal septum deviation. No fracture identified. Visible soft tissues including orbital soft tissues and upper neck: Cataract postsurgical change noted. Visible intracranial structures: Normal. IMPRESSION: No fracture identified. Report Dictated By: Jonh Ace MD at 03/05/2019 12:46 PM Report E-Signed By: Jonh Ace MD at 03/05/2019 12:[address] scan without contrast HISTORY: Fall COMPARISONS: 09/07/2017 TECHNIQUE: Non-contrast head CT was performed with sagittal and coronal re formations. One of the following dose optimization techniques was utilized in the performance of this exam: automated exposure control; adjustment of the mA and/or kV according to patient size; or use of iterative reconstruction technique. Specific details can be referenced in the facility's radiology CT exam operational policy. FINDINGS: There is no intracranial hemorrhage, hydrocephalus or midline shift. The basal cisterns, ashton-white differentiation, and convexity sulci are maintained. Cataract postsurgical change noted. Mild unchanged parenchymal atrophy. Mild unchanged patchy white matter hypoattenuation. The mastoid air cells are clear. The paranasal sinuses are clear. The osseous structures are normal. IMPRESSION: No acute intracranial abnormality. Report Dictated By: Jonh Ace MD at 03/05/2019 12:36 PM Report E-Signed By: Jonh Ace MD at 03/05/2019 12:39 PM EXAMINATION: Right tibia and fibula radiographs HISTORY: Fall COMPARISON: None. FINDINGS: Frontal and lateral views obtained. Bones: No fracture identified. Likely chronic cortical irregularity along the mid fibula diaphysis seen on lateral view. Joint spaces: Normal. Alignment: Normal. Soft tissues: Normal. IMPRESSION: No fracture or malalignment. Report Dictated By: Jonh Ace MD at 03/05/2019 12:35 PM Report E-Signed By: Jonh Ace MD at 03/05/2019 12:36 PM ED Course/Re-evaluation ED Course Patient was admitted to an exam room, history and physical were obtained. Differential diagnoses were considered. On examination lungs are clear, heart is regular, abdomen was soft nontender. Patient did have some tenderness around the right lower leg. She had some abrasions and swelling to the left side of the upper lip. A CT scan of the head, cervical spine, facial bones were done. The imaging results were negative. Also did an x-ray of the right lower leg which was negative. The wound was anesthetized using LET. The wound was flushed and then dressed. I did put some bacitracin on the bed of the wound pulled the skin that had been peeled off over the wound bed and covered with a Tegaderm. Patient tolerated procedure well. I discussed the findings of the imaging results with patient and we will discharge patient home at this time. She states Tylenol ibuprofen as if her pain. She is follow-up with her primary care provider with any concerns. She is return to the emergency room if condition worsens. Patient verbalized understanding and agreement with plan. Decision to Disposition Date: March 05, 2019 Decision to Disposition Time: 13:06 Depart Departure Latest Vital Signs Vital Signs Date Time Temp Pulse Resp B/P (MAP) Pulse Ox O2 Delivery O2 Flow Rate FiO2 03/05/19 13:03 91 87 03/05/19 13:00 145/86 (105) 03/05/19 10:54 97.9 20 Impression: Primary Impression: Skin tear Additional Impressions: Fall Facial abrasion Condition: Improved Disposition: HOME OR SELF-CARE Referrals: CORTNEY VAZQUEZ (PCP) Patient Instructions: Skin Tear (ED) Additional Instructions: Limit activity by pain. Get plenty of rest. Take Tylenol or Ibuprofen as needed for pain. Increase fluid intake. Use your walker or your cane when ambulating. Problem Qualifiers Additional Impressions: Fall Encounter type: initial encounter Qualified Codes: W19.XXXA - Unspecified fall, initial encounter Facial abrasion Encounter type: initial encounter Qualified Codes: S00.81XA - Abrasion of other part of head, initial encounter TRISTON MCNEIL March 05, 2019 11:05
[2019-03-05] MEDS ORDERED: DIPHTH/TETANUS/ACEL. PERTUSSIS IM ONLY ONE (11:15)
[2019-03-05] MEDS ORDERED: TETRACAIN/EPI/LIDO GEL 3ML SYR TP ONE (11:15)
--- NOTE | 2019-03-05 12:41 | RADIOLOGY IMAGING REPORT ---
FACILITY: [facility] PATIENT NAME: Sayra Hayward : 1930 MR: [id number] V: [id number] EXAM DATE: ORDERING PHYSICIAN: TRISTON MCNEIL TECHNOLOGIST: Location: [facility] [place] Patient: Sayra Hayward : 1930 Visit/Account:[id number] Date of Sevice: 03/05/2019 EXAMINATION: Right tibia and fibula radiographs HISTORY: Fall COMPARISON: None. FINDINGS: Frontal and lateral views obtained. Bones: No fracture identified. Likely chronic cortical irregularity along the mid fibula diaphysis s een on lateral view. Joint spaces: Normal. Alignment: Normal. Soft tissues: Normal. IMPRESSION: No fracture or malalignment. Report Dictated By: Jonh Ace MD at 03/05/2019 12:35 PM Report E-Signed By: Jonh Ace MD at 03/05/2019 12:36 PM WSN:[id number]
--- NOTE | 2019-03-05 12:42 | RADIOLOGY IMAGING REPORT ---
FACILITY: [facility] PATIENT NAME: Sayra Hayward : 1930 MR: [id number] V: [id number] EXAM DATE: ORDERING PHYSICIAN: TRISTON MCNEIL TECHNOLOGIST: Location: [facility] Patient: Sayra Hayward : 1930 Visit/Account:[id number] Date of Sevice: 03/05/[address] scan without contrast HISTORY: Fall COMPARISONS: 09/07/2017 TECHNIQUE: Non-contrast head CT was performed with sagittal and coronal reformations. One of the following dose optimization techniques was utilized in the performance of this exam: autom ated exposure control; adjustment of the mA and/or kV according to patient size; or use of iterative reconstruction technique. Specific details can be referenced in the facility's radiology CT exam ope rational policy. FINDINGS: There is no intracranial hemorrhage, hydrocephalus or midline shift. The basal cisterns, ashton-white differentiation, and convexity sulci are maintained. Cataract postsurgical change noted. Mild unchang ed parenchymal atrophy. Mild unchanged patchy white matter hypoattenuation. The mastoid air cells are clear. The paranasal sinuses are clear. The osseous structures are normal . IMPRESSION: No acute intracranial abnormality. Report Dictated By: Jonh Ace MD at 03/05/2019 12:36 PM Report E-Signed By: Jonh Ace MD at 03/05/2019 12:39 PM WSN:[id number]
--- NOTE | 2019-03-05 12:50 | RADIOLOGY IMAGING REPORT ---
FACILITY: [facility] [place] PATIENT NAME: Sayra Hayward : 1930 MR: [id number] V: [id number] EXAM DATE: ORDERING PHYSICIAN: TRISTON MCNEIL TECHNOLOGIST: Location: [facility] Patient: Sayra Hayward : 1930 Visit/Account:[id number] Date of Sevice: 03/05/2019 EXAMINATION: CT Cervical spine without intravenous contrast HISTORY: Fall COMPARISON: August 16, 2012 TECHNIQUE: Axial images were obtained from the skull base through the upper thoracic spine without I V contrast administration. Coronal and sagittal reformatted images were generated from the axial sour ce data. One of the following dose optimization techniques was utilized in the performance of this exam: autom ated exposure control; adjustment of the mA and/or kV according to patient size; or use of iterative reconstruction technique. Specific details can be referenced in the facility's radiology CT exam ope rational policy. FINDINGS: Vertebral bodies and posterior elements: Normal vertebral body heights. No fracture identified. New w idening of the left C3-4 facet joint space is favored to be degenerative. Alignment: Mild convexity left scoliosis may be positional. Disc Spaces: Moderate C4-5 disc space degeneration has progressed. Multilevel degenerative foraminal narrowing. Soft tissues: Normal. Visualized upper chest: Nodular right apical pleural-parenchymal scarring was not imaged on prior to evaluate for interval change. IMPRESSION: 1. No fracture identified. 2. Mild widening of the left C3-4 facet joint space is new compared to prior and favored to be degene rative or positional. Acute traumatic widening is felt less likely. Correlate with site of pain. MR o f the cervical spine could be utilized for further characterization if there is high clinical concern for an acute traumatic injury at this level. Report Dictated By: Jonh Ace MD at 03/05/2019 12:39 PM Report E-Signed By: Jonh Ace MD at 03/05/2019 12:46 PM WSN:[id number]
--- NOTE | 2019-03-05 12:54 | RADIOLOGY IMAGING REPORT ---
FACILITY: [facility] PATIENT NAME: Sayra Hayward : 1930 MR: [id number] V: [id number] EXAM DATE: ORDERING PHYSICIAN: TRISTON MCNEIL TECHNOLOGIST: Location: [facility] [place] Patient: Sayra Hayward : 1930 Visit/Account:[id number] Date of Sevice: 03/05/2019 EXAMINATION: CT facial bones without IV contrast HISTORY: Fall COMPARISON: None. TECHNIQUE: Axial images were obtained through the facial bones. Coronal and sagittal reformatted neela ges were generated from the source data. No IV contrast was administered. One of the following dose optimization techniques was utilized in the performance of this exam: autom ated exposure control; adjustment of the mA and/or kV according to patient size; or use of iterative reconstruction technique. Specific details can be referenced in the facility's radiology CT exam ope rational policy. FINDINGS: Mastoid air cells and sinuses: Clear. Osseous structures including mandible and orbital mendes: Chronic mild rightward nasal septum deviati on. No fracture identified. Visible soft tissues including orbital soft tissues and upper neck: Cataract postsurgical change not ed. Visible intracranial structures: Normal. IMPRESSION: No fracture identified. Report Dictated By: Jonh Ace MD at 03/05/2019 12:46 PM Report E-Signed By: Jonh Ace MD at 03/05/2019 12:51 PM WSN:[id number]
[2019-03-05 13:00] VITALS: BP 145/86
== END 2019-03-05 13:18 | disposition home or self-care (01) ==
LOC: ER 11:05
DX: S00.81XA Abrasion of other part of head, initial encounter (principal); W01.198A Fall on same level from slipping, tripping and stumbling with subsequent striking against other object, initial encounter; Z91.81 History of falling
CPT/HCPCS: 70450; 70486; 72125; 90471; 90715; 99284

== ENCOUNTER → 2019-03-31 | Outpatient (CLI) | payer MEDICARE ==
[2017-12-29 10:04] VITALS: BMI 16.0
[~2019-03-31] MED LIST changes: -TRAZ50TA34 PO; +TRAZ50TA52 PO
[2019-03-31 14:41] LABS: PLATELET COUNT, AUTOMATED 277 K/uL (150-450)
== END ==
LOC: LAB 13:51
PROVIDERS: ATTEND Nurse Practitioner Family
DX: R53.81 Other malaise (principal); E87.8 Other disorders of electrolyte and fluid balance, not elsewhere classified; D50.9 Iron deficiency anemia, unspecified; E53.8 Deficiency of other specified B group vitamins; E55.9 Vitamin D deficiency, unspecified
CPT/HCPCS: 36415; 82040; 82247; 82306; 82310; 82374; 82435; 82565; 82607; 82728; 82947; 84075; 84132; 84155; 84295; 84443; 84450; 84460; 84520; 85025

== ENCOUNTER 2019-04-15 12:00 | Outpatient (RCR) | payer MEDICARE ==
[2017-12-29 10:04] VITALS: BMI 16.0
[~2019-04-15 12:00] MED LIST changes: +DEXTROSE 5%(*) 100 ML BAG 100 ML IVPB PRN; +LIDOCAINE/SOD BICARB 8.4% SYR ID PRN; +NS(*) 0.9% 100 ML BAG 100 ML IVPB PRN
[2019-04-15 12:20] VITALS: BP 142/75
[2019-04-15] MEDS ORDERED: ACETAMINOPHEN 325 MG TAB PO ONE (13:35)
[2019-04-15] MEDS ORDERED: diphenhydrAMINE 25 MG CAP PO ONE (13:35)
[2019-04-15 14:37] VITALS: BP 158/70
[2019-04-15 14:42] VITALS: BP 158/70
[2019-04-15 14:58] VITALS: BP 156/68
[2019-04-15 16:52] VITALS: BP 138/69
[2019-04-15] MEDS ORDERED: NS(*) 0.9% 250 ML BAG 250 ML IVPB PRN (18:00)
[2019-04-15] MEDS ORDERED: HEPARIN FLSH (PORT) 500 UN/5ML IVP PRN (18:00)
[2019-04-15] MEDS ORDERED: NS(*) 0.9% 100 ML BAG 100 ML IVPB PRN (18:00)
[2019-04-15] MEDS ORDERED: WATER FOR INJ,STERILE 20 ML IVP PRN (18:00)
[2019-04-15] MEDS ORDERED: ALTEPLASE RECOMB 2 MG VIAL IVP PRN (18:00)
[2019-04-15] MEDS ORDERED: LIDOCAINE/SOD BICARB 8.4% SYR ID PRN (18:00)
[2019-04-15] MEDS ORDERED: DEXTROSE 5%(*) 100 ML BAG 100 ML IVPB PRN (18:00)
== END 2019-05-18 13:47 | disposition home or self-care (01) ==
LOC: SPU 12:00
PROVIDERS: ATTEND Nurse Practitioner Family
DX: D50.0 Iron deficiency anemia secondary to blood loss (chronic) (principal)
CPT/HCPCS: 36415; 36430; 86850; 86900; 86901; 86920; A9270; P9016; Q0163

== ENCOUNTER → 2019-04-15 | Outpatient (CLI) | payer MEDICARE ==
[2017-12-29 10:04] VITALS: BMI 16.0
== END ==
LOC: LAB 11:32
PROVIDERS: ATTEND Nurse Practitioner Family
DX: Z02.9 Encounter for administrative examinations, unspecified (principal)